=== PATIENT | female | born 1985 | race Two or more races ===

== ENCOUNTER → 2023-08-04 11:21 | Outpatient (BNVA) | payer MEDICAID, SELFPAY | PROVIDERS: Visit Provider Physician Assistant ==

== ENCOUNTER 2023-09-08 10:53 | Outpatient (AMB) | payer MEDICAID, SELFPAY ==
--- NOTE | 2023-09-08 10:57 | MHC.OFFVISWM ---
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 Her goal is to lose 80 lbs via LSG. She reports first being concerned about her weight 2011 - after had work accident and lost 3 figures. She lives with her and 2 children. She works 3d/week as houselcleaner. She wakes at: 6am, bed at 11 pm Breakfast: spinach and other green vegetables juice, pineapple. Coffee with 2% milk and sugar 7:30 am - 2 eggs with 2 pieces siddiqi with rodas. OJ or lemonade Lunch: 1 pm - chicken or beef or fish with rice and vegetables. Lemonade Dinner: 7pm - chicken with salad rice/beans. Lemonade or other juice, water After dinner: may have fruit after dinner Other snacks: states none Liquids:Soda at times, but has sweetened drinks all day Alcohol intake: 3 tiems per year, tobacco: none, marijuana: none Exercise: 30- 40 minutes - treadmill at home, 250 calories 3-4 d/ week. stretching exercises at home Last mammogram: never Last pap smear: anuually control method: BTL EILEEN:0 ESS:3 GERD2: QOL:45 PFSH Surgical History (Updated 09/08/23 @ 11:25 by Ariana Aden PA-C) Hx of skin graft Hx of hand surgery Family History Mother No problems noted. Father Hypertension Social History (Updated 08/04/23 @ 11:41 by Patricia Colon, ROOF CEMENT AND PAINT MAKER) Alcohol intake: never Patient Tobacco Use Status: Never used Tobacco Physical Exam Const General: cooperative, no acute distress and well developed Nutritional Appearance: obese Orientation/consciousness: patient oriented x3 HEENT Head: Yes normal to inspection Neck Neck: Yes normal visual inspection Thyroid: Thyroid normal Resp Effort & Inspection: normal respiratory effort Auscultation: clear to auscultation bilaterally Cardio Rate: regular rate Rhythm: regular rhythm Heart sounds: S1 normal heart sound present, S2 normal heart sound present and no murmurs GI Inspection: No distended, Yes obesity and Yes scar (vertical skin inciison form graft and low transverse c/s scar) Palpation (GI): Soft to palpation, nontender and no guarding Skin General skin exam: no rashes or lesions noted and other (warm and dry) Wounds: no wounds Hair: normal Neuro General: patient oriented x3 Extrem General: Yes no pedal edema and Yes no calf tenderness Psych Attitude: cooperative Thought process: Normal thought process present Thought content: Normal thought content present Insight: Good insight present (Psych) Judgement: Good judgement present (Psych) Assessment & Plan Assessment & Plan (1) Morbid obesity: Code(s): E66.01 - Morbid (severe) obesity due to excess calories Plan: This is a 38 yo woman with super morbid obesity who will start SWL program to prepare for bariatric surgery. Blood work, h pylori , CXR, ECG, Abd ULS and UGI have been ordered. She is being scheduled for RD and BH initial consultations. She will start SWL classes and watch at 3 classes before her next appt with Jacqueline. 1. Adequate sleep of 7-8 hours per night discussed 2. Healthy meal plan - stop all sweetened drinks All meals/MR's need to take 20 minutes to complete coffee with milk only 8 am - powdered shake 12 pm - yogurt or bar 4 pm- shake 7 pm- dinner of 12 foks lean protein, 12 forks vegetable, 1 serving fruit Exercise - Cardio 4 d week = treadmill at speed 2.8, incline 1- 6- to burn 350 calories The importance of avoiding and breast feeding for at least 18 months after bariatric surgery was discussed in the information session and was reinforced today. Has BTL Pt will purchase body composition analyzer (recommended list given to patient) and weight herself weekly. Next appt with me in 3 weeks. Text me with any questions and weekly weights. Patient is morbidly obese and is not considered stable at this time.?I spent a total of 60 minutes reviewing/updating records, examining the patient and counseling the patient on weight management as detailed above. (2) Pre-op evaluation: Code(s): Z01.818 - Encounter for other preprocedural examination (3) section wound complication: Code(s): O90.9 - Complication of the puerperium, unspecified (4) History of bilateral tubal ligation: Code(s): Z98.51 - Tubal ligation status (5) GERD (gastroesophageal reflux disease): Code(s): K21.9 - Gastro-esophageal reflux disease without esophagitis (6) HTN (hypertension), benign: Code(s): I10 - Essential (primary) hypertension Coding Level of Care Code New Pt Level 5 (30161) Diagnoses Morbid obesity E66.01 Pre-op evaluation Z01.818 section wound complication O90.9 History of bilateral tubal ligation Z98.51 GERD (gastroesophageal reflux disease) K21.9 HTN (hypertension), benign I10
[2023-09-08 11:13] VITALS: BP 166/88; PULSE 68; TEMP 36.1; O2SAT 97; BMI 59.1
== END 2023-09-08 12:01 | disposition home or self-care (01) ==
PROVIDERS: Visit Provider Physician Assistant
DX: E66.01 Morbid (severe) obesity due to excess calories (principal); Z68.43 Body mass index [BMI] 50.0-59.9, adult; K21.9 Gastro-esophageal reflux disease without esophagitis; I10 Essential (primary) hypertension
CPT/HCPCS: 99205

== ENCOUNTER 2023-09-08 10:53 | Outpatient (REF) | payer MEDICAID, SELFPAY ==
[2023-09-10 17:15] LABS: H Pylori Breath Test Positive (Negative)
== END 2023-09-08 10:54 | disposition home or self-care (01) ==
LOC: HO.LNP 10:53
PROVIDERS: Visit Provider Physician Assistant
DX: Z01.818 Encounter for other preprocedural examination (principal); E66.01 Morbid (severe) obesity due to excess calories; K21.9 Gastro-esophageal reflux disease without esophagitis; I10 Essential (primary) hypertension
CPT/HCPCS: 83013; 99202; 99211

== ENCOUNTER 2023-09-15 08:43 | Outpatient (REF) | payer MEDICAID, SELFPAY ==
--- NOTE | ~2023-09-15 | XR_ITS ---
EXAMINATION: XR CHEST CLINICAL INFORMATION: Morbid obesity due to excess calories COMPARISON: None available. TECHNIQUE: 2 views of the chest were obtained. FINDINGS: There is no gross pneumothorax. Lung volumes are low. Heart size is normal. No pleural effusion. No focal consolidation to suggest pneumonia. Mild degenerative changes in the thoracic spine. XR/XR chest 2V IMPRESSION: No evidence of pneumonia.
--- NOTE | 2023-09-15 08:52 | ECG_ITS ---
Test Reason : morbid obesity Blood Pressure : / mmHG Vent. Rate : 079 BPM Atrial Rate : 079 BPM P-R Int : 138 ms QRS Dur : 078 ms QT Int : 378 ms P-R-T Axes : 014 005 038 degrees QTc Int : 433 ms Normal sinus rhythm Normal ECG No previous ECGs available Referred By: Ariana Aden Electronically Signed By:BROOKE FRANCO MD
[2023-09-15 09:15] LABS: MANUAL DIFF FLAG NO
[2023-09-15 09:52] LABS: Basophils Percent Auto 0.5 % (0-2); Eosinophils Absolute Auto 0.3 X10*3/uL (0.0-0.4); Eosinophils Percent Auto 2.9 % (0-4); Hematocrit 40.2 % (37.0-47.0); Imm Gran Abs Auto 0.02 X10*3/uL (0.00-0.03); Imm Gran Pct Auto 0.2 % (0.0-0.4); Lymphocytes Absolute Auto 2.9 X10*3/uL (1.2-4.9); Lymphocytes Percent Auto 32.7 % (20-40); Mean Corpuscular HGB Conc 32.3 g/dl (31.0-35.0); Mean Corpuscular Hemoglobin 26.4 pg (27.0-33.0); Mean Corpuscular Volume 81.5 fL (80.0-98.0); Mean Platelet Volume 11.9 fL (9.4-12.3); Monocytes Absolute Auto 0.7 X10*3/uL (0.1-1.2); Neutrophils Absolute Auto 4.9 x10*3/uL (2.0-8.3); Neutrophils Percent Auto 55.7 % (45-73); Platelet Count 304 X10*3/uL (160-400); Red Blood Count 4.93 X10*6/uL (4.20-5.50); Red Cell Distribution Width 14.8 % (11.0-16.0); White Blood Count 8.7 X10*3/uL (4.8-10.8)
[2023-09-15 10:03] LABS: Estimated Average Glucose 100 mg/dL; Hemoglobin A1c % 5.1 % (<6.0)
[2023-09-15 10:43] LABS: Alanine Aminotransferase 43 U/L (0-31); Alkaline Phosphatase 61 U/L (39-117); Anion Gap 13 (12-20); Aspartate Amino Transferase 38 U/L (5-31); Bilirubin Total 0.4 mg/dL (0.0-1.0); Blood Urea Nitrogen 10 mg/dL (9-16); C Reactive Protein 0.34 mg/dL (< or = 0.50); Calcium 9.5 mg/dL (8.4-10.2); Carbon Dioxide 25 mmol/L (22-29); Chloride 107 mmol/L (96-108); Cholesterol 149 mg/dL (<200); Estimated Glomerular Filt Rate > 60; Glucose Random 92 mg/dL (60-115); HDL Cholesterol 36 mg/dL (>40); Iron 40 mcg/dL (30-160); LDL Cholesterol Calculated 89 mg/dL (<100); Percent Iron Saturation 10 % (15-50); Potassium 3.7 mmol/L (3.3-5.1); Sodium 141 mmol/L (135-145); Total Iron Binding Capacity 418 mcg/dL (228-428); Total Protein 7.9 g/dL (6.5-8.0); Triglycerides 123 mg/dL (<150); Unsaturated Iron Binding 378 ug/dL
[2023-09-15 11:01] LABS: Ferritin 8 ng/mL (10-122); Insulin 22 uU/mL (2-29); Vitamin D 25-OH Total 28.1 ng/mL (>30)
[2023-09-15 11:05] LABS: Folate 9.3 ng/mL (> or = 4.0); Vitamin B12 728 pg/mL (200-900)
[2023-09-16 15:23] LABS: Calcium (PTHI) 9.5 mg/dL (8.6-10.2); PTHI 75 pg/mL (16-77)
[2023-09-18 00:52] LABS: Zinc 98 mcg/dL (60-130)
[2023-09-18 04:19] LABS: Vitamin A 34 mcg/dL (38-98)
[2023-09-20 16:54] LABS: Vitamin B1 11 nmol/L (8-30)
== END 2023-09-15 08:44 | disposition home or self-care (01) ==
LOC: HO.XRAY 08:43
PROVIDERS: Visit Provider Physician Assistant
DX: Z01.818 Encounter for other preprocedural examination (principal); E66.01 Morbid (severe) obesity due to excess calories; K21.9 Gastro-esophageal reflux disease without esophagitis; I10 Essential (primary) hypertension
CPT/HCPCS: 36415; 71046; 80053; 80061; 82306; 82607; 82728; 82746; 83036; 83525; 83540; 83970; 84425; 84443; 84590; 84630; 85025; 86140; 93005

== ENCOUNTER 2023-10-08 12:30 | Outpatient (AMB) | payer OTHER, SELFPAY ==
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
== END 2023-10-08 12:58 | disposition home or self-care (01) ==
LOC: HO.HBST 12:41
PROVIDERS: Visit Provider Counselor Mental Health
DX: F43.20 Adjustment disorder, unspecified (principal)
CPT/HCPCS: 90791

== ENCOUNTER → 2023-10-08 12:30 | Outpatient (BNVA) | payer OTHER, MEDICAID, SELFPAY | PROVIDERS: Visit Provider Counselor Mental Health ==

== ENCOUNTER 2023-10-15 10:00 | Outpatient (AMB) | payer MEDICAID, SELFPAY ==
--- NOTE | 2023-10-15 10:08 | MHC.OFFVISWM ---
Intake VS Expanded 10/15/23 10:12 Height 5 ft 2 in Weight 313 lb BMI 57.2 Intake Visit Reasons: VIDEO F/U SWL Allergies No Known Allergies Allergy (Verified 08/04/23 11:41) HPI HPI Comments History of Present Illness Details This is the patients second appt for SWL. Starting weight was 323.1 lbs on 09/01/23. TBWL is 10 lbs. Meal plan: 8am - Unjury shake 11am- fruit only 12pm - yogurt 2pm- shake 4pm - ? portion size, salmon or chicken breast, with salad/vegetables 7pm - almonds Exercise plan: treadmill at home - 5d/wk. speed 2.6, incline 4, 300- 350 calories burned. Pre op work up completed as follows: SWL classes - - none BH appts - Diane, cleared RD appts - not yet H pylori - POSITIVE , treated on 10/06 Labs - elevated LFT's CXR and ECG - both NAD ULS and UGI - 10/16 and 12/03 Contraception- BTL PFSH Surgical History (Updated 09/08/23 @ 11:25 by Ariana Aden PA-C) Hx of skin graft Hx of hand surgery Family History Mother No problems noted. Father Hypertension Social History Alcohol intake: never Patient Tobacco Use Status: Never used Tobacco Physical Exam Vital Signs: BMI result Body Mass Index 57.2 Assessment & Plan Assessment & Plan (1) Morbid obesity: Code(s): E66.01 - Morbid (severe) obesity due to excess calories Plan: 10 lbs lost so far, now SWL classes yet. 8am - shake 11 am - yogurt 2pm - shake 5pm- 12 forks each protein and veg and 1 serving fruit 7-8 pm- bar Exercise - treadmill - speed 3.0, incline 2 - 7, 400 calories. Text me weekly weights. All upcoming appts discussed, will schedule with Jacqueline now and all SWL classes before appt. Next appt 3 weeks. Patient is still morbidly obese and is not considered stable at this time. I spent 30 minutes in total speaking with the patient via video conference counseling , reviewing records and charting in patients chart. . Telehealth Telehealth Location of provider rendering services: practice address Location of patient: address on file Patient Identification confirmed using: Name, : Yes Telehealth method: video Patient verbally consented to treatment: Yes Patient verbally consented to billing insurance company: Yes Patient informed of any privacy concerns related to visit: Yes Coding Level of Care Code Tele Est Pt Level 4 (86565) Diagnoses Morbid obesity E66.01
[2023-10-15 10:12] VITALS: BMI 57.2
== END 2023-10-15 10:31 | disposition home or self-care (01) ==
LOC: HO.HBS 10:15
PROVIDERS: Visit Provider Physician Assistant
DX: E66.01 Morbid (severe) obesity due to excess calories (principal); Z68.43 Body mass index [BMI] 50.0-59.9, adult
CPT/HCPCS: 99214

== ENCOUNTER → 2023-10-15 10:00 | Outpatient (BNVA) | payer OTHER, MEDICAID, SELFPAY | PROVIDERS: Visit Provider Physician Assistant ==

== ENCOUNTER 2023-10-16 09:57 | Outpatient (REF) | payer MEDICAID, OTHER, SELFPAY ==
--- NOTE | ~2023-10-16 | US_ITS ---
EXAMINATION: US COMPLETE ABDOMEN WITH LIVER ELASTOGRAPHY CLINICAL INFORMATION: Morbid obesity. COMPARISON: None available. TECHNIQUE: Real-time imaging of the abdominal viscera. Noninvasive ultrasound liver fibrosis assessment is performed using Dylan ElastPQ point quantification shear wave elastography (2D-SWE) with a C5-2 MHz transducer. Multiple elastography samples are obtained. FINDINGS: PANCREAS: Largely obscured by body habitus. ABDOMINAL AORTA: The proximal, middle, and distal aortic segments are normal in caliber. INFERIOR VENA CAVA: Visualized portions are normal. LIVER: Normal. The liver demonstrates normal size, contour and echogenicity. No focal lesion or intrahepatic biliary duct dilatation. The right lobe measures 14.1 cm in length. The left lobe measures 9.8 cm in length. Portal flow is towards the liver (hepatopetal). Shear wave liver elastography median stiffness is 1.49 m/s (reference: normal median stiffness is 1.3 m/s or less). IQR/median stiffness to assess sampling precision is 0.1. (reference: good quality data set is IQR/median stiffness of 0.15 or less). GALLBLADDER: A 4 mm nonmobile gallbladder polyp is incidentally noted. The gallbladder is physiologically distended without evidence of stones, sludge, polyps, wall thickening or pericholecystic fluid. COMMON BILE DUCT: Normal in caliber measuring 0.3 cm in diameter. RIGHT KIDNEY: Normal. No hydronephrosis. No renal calculi or focal parenchymal lesions. The kidney measures 9.4 cm in maximum dimension. LEFT KIDNEY: At the interpolar aspect, a 2.0 cm benign, simple cyst is seen. This requires no imaging follow-up. No hydronephrosis. No renal calculi or focal parenchymal lesions. The kidney measures 11.8 cm in maximum dimension. SPLEEN: Normal. The spleen measures 10.4 cm in maximum dimension. FREE FLUID: None. US/US abdomen comp w elastography IMPRESSION: 1. There is generalized increase in hepatic echotexture, consistent with fatty infiltration or hepatocellular disease. Please correlate clinically. No focal hepatic mass or intrahepatic biliary dilatation is seen. 2. Liver elastography: In the absence of other known clinical signs, measurements rule out compensated advanced chronic liver disease. If there are known clinical signs, further testing may be needed for confirmation. 3. A 4 mm nonmobile gallbladder polyp is incidentally seen, for which no imaging follow-up is recommended. 4. Limited ultrasound evaluation, in particular of the pancreas. REFERENCE: Society of Radiologists in Ultrasound Liver Stiffness Thresholds (2020): LIVER STIFFNESS THRESHOLDS: *Liver Stiffness equal or less than 1.3 m/s: High probability of being normal. *Liver Stiffness less than 1.7 m/s: In the absence of other known clinical signs, rules out compensated advanced chronic liver disease. *Liver Stiffness 1.7-2.1 m/s: Suggestive of compensated advanced chronic liver disease but need further test for confirmation. *Liver Stiffness over 2.1 m/s: Rules in compensated advanced chronic liver disease. *Liver Stiffness over 2.4 m/s: Suggestive of clinically significant portal hypertension. QUALITY OF DATA SET: *IQR/Median value equal or less than 0.15 implies a quality data set. *IQR/Median value over 0.15 implies a poor quality data set. SIGNIFICANT CHANGE FROM PRIOR EXAM: Significant change if liver stiffness measurement is 10% or greater from prior exam. OTHER CONSIDERATIONS: The stage of liver fibrosis may be overestimated in the setting of acute hepatitis, liver inflammation, elevated liver function tests, hepatic vascular congestion, obstructive cholestasis, non-fasting state, and infiltrative diseases such as amyloidosis and lymphoma. In some patients with NAFLD, the liver stiffness thresholds for compensated advanced chronic liver disease may be lower. In causes other than viral hepatitis and NAFLD, liver stiffness thresholds are not well established.
== END 2023-10-16 09:58 | disposition home or self-care (01) ==
LOC: HO.US 09:57
PROVIDERS: Visit Provider Physician Assistant
DX: Z01.818 Encounter for other preprocedural examination (principal); E66.01 Morbid (severe) obesity due to excess calories; K21.9 Gastro-esophageal reflux disease without esophagitis; I10 Essential (primary) hypertension
CPT/HCPCS: 76705; 76981

== ENCOUNTER 2023-11-12 10:14 | Outpatient (AMB) | payer MEDICAID, SELFPAY ==
--- NOTE | 2023-11-12 10:30 | MHC.OFFVISWM ---
Intake VS Expanded 11/12/23 10:42 BP 129/67 Blood Pressure Location Rt brachial Blood Pressure Position Sitting Pulse 88 Pulse Source Pulse Oximeter Temp 96.8 F Temperature Source Tympanic Pulse Oximetry 100 Oxygen Delivery Method Room Air Height 5 ft 2 in Weight 306 lb 9.6 oz BMI 56.1 Body Fat % 46.1 Body Fat Mass 141.4 Fat Free Mass 165.2 Visceral Fat Rating 18.0 Body Water % 38.6 Body Water Mass 118.2 Muscle Mass/Score 156.8 Basal Metabolic Rate/Score 2,365 Intake Visit Reasons: (OV) F/U SWL + H Pylori Allergies No Known Allergies Allergy (Verified 08/04/23 11:41) HPI HPI Comments History of Present Illness Details SWL follow up, TBWL is 16.3 lbs or 5%. Meal plan: 8am - Unjury shake UAM 11 am - yogurt, sometimes adds blueberries 2pm- same shake 5pm - salad or vegetables with chicken breast - use handfuls - knows about 12 forkfuls. 6-7 pm - Simply protein bar sometimes Exercise - will start tomorrow, has treadmill at home now. Pre op work up completed as follows: SWL classes - - none BH appts - Diane, cleared RD appts - initial 11/18. H pylori - POSITIVE , treated on 10/06, retest today Labs - elevated LFT's CXR and ECG - both NAD ULS - fatty liver, R 14.1, L 9.8 UGI - 12/03 Contraception- BTL PFSH Surgical History (Updated 09/08/23 @ 11:25 by Ariana Aden PA-C) Hx of skin graft Hx of hand surgery Family History Mother No problems noted. Father Hypertension Social History Alcohol intake: never Patient Tobacco Use Status: Never used Tobacco Physical Exam Vital Signs: Last Vital Signs Temp 96.8 F 11/12/23 10:42 Pulse 88 11/12/23 10:42 BP 129/67 11/12/23 10:42 Pulse Ox 100 11/12/23 10:42 Oxygen Delivery Method Room Air 01/03/24 10:42 BMI result Body Mass Index 56.1 Assessment & Plan Assessment & Plan (1) Morbid obesity: Code(s): E66.01 - Morbid (severe) obesity due to excess calories Plan: Patient has a very good meal plan and will start exercise now. She has the link for SWL classes and Hakeem is helping her today with access. Meal plan 8am - shake 11am - bar 2pm - shake 5pm - 12 forks each 8pm - bar Exercise - treadmill - speed 2.8m incline 0-5, for 350 calories 5 d/ week Needs to watch classes now. All appts reviewed with patient. Next appt with me in 3 weeks TV. Patient is still morbidly obese and is not considered stable at this time. I spent 30 minutes in total speaking with the patient via video conference counseling , reviewing records and charting in patients chart. . (2) HTN (hypertension), benign: Code(s): I10 - Essential (primary) hypertension (3) Fatty liver: Code(s): K76.0 - Fatty (change of) liver, not elsewhere classified Plan see above Coding Level of Care Code Est Pt Level 4 (13216) Diagnoses Morbid obesity E66.01 HTN (hypertension), benign I10 Fatty liver K76.0
[2023-11-12 10:42] VITALS: BP 129/67; PULSE 88; TEMP 36; O2SAT 100; BMI 56.1
== END 2023-11-12 11:21 | disposition home or self-care (01) ==
PROVIDERS: Visit Provider Physician Assistant
DX: E66.01 Morbid (severe) obesity due to excess calories (principal); I10 Essential (primary) hypertension; K76.0 Fatty (change of) liver, not elsewhere classified
CPT/HCPCS: 99214

== ENCOUNTER → 2023-11-12 10:14 | Outpatient (BNVA) | payer MEDICAID, SELFPAY | PROVIDERS: Visit Provider Physician Assistant | DX: E66.01 Morbid (severe) obesity due to excess calories (principal); I10 Essential (primary) hypertension; K76.0 Fatty (change of) liver, not elsewhere classified; Z68.43 Body mass index [BMI] 50.0-59.9, adult | CPT/HCPCS: 99211; 99212 ==

== ENCOUNTER 2023-11-12 14:09 | Outpatient (REF) | payer MEDICAID, SELFPAY ==
[2023-11-18 15:00] LABS: H Pylori Breath Test Positive (Negative)
== END 2023-11-12 14:10 | disposition home or self-care (01) ==
LOC: HO.LNP 14:09
PROVIDERS: Visit Provider Physician Assistant
DX: Z01.818 Encounter for other preprocedural examination (principal); E66.01 Morbid (severe) obesity due to excess calories; K21.9 Gastro-esophageal reflux disease without esophagitis; I10 Essential (primary) hypertension
CPT/HCPCS: 83013

== ENCOUNTER 2023-11-18 10:10 | Outpatient (AMB) | payer MEDICAID, SELFPAY ==
--- NOTE | 2023-11-18 10:32 | MHC.AMNUTRGE ---
Intake Intake Visit Reasons: (OV) F/U SWL Technical Sales Manager Required: Yes Technical Sales Manager Name: chrissy Contreras [id number] Information Interpreted: non-clinical & clinical Allergies No Known Allergies Allergy (Verified 08/04/23 11:41) HPI Nutrition Presentation Reason for consult elevated BMI Diet Assmnt Details Pt seeing Ariana, following her program plan without concerns or issues. 2 shakes, 2 bars and 1 meal - protein such as salmon, chicken, beef and vegetables. she is very happy with the way she is eating SW online classes: completed and scored well, reviewed. handouts provided Dietary counseling reduction Who buys your food self Who prepares/cooks your food self Diagnosis Nutrition problem #1 overweight/obesity As related to (etiology) #1 excess energy intake and physical inactivity As evidenced by (sign/symptom) #1 high BMI Monitoring/Goals Nutrition problem monitoring total energy intake, level of knowledge/skill, total PRO intake and weight Outcome progress progressing Learning/Education Readiness to learn good Stages of change action Educational materials provided Yes Most Recent Diabetes Results: Cholesterol 149 mg/dL (<200) 09/15/23 HDL Cholesterol 36 mg/dL (>40) L 09/15/23 Triglycerides 123 mg/dL (<150) 09/15/23 Creatinine 0.89 mg/dL (0.5-1.4) 09/15/23 Blood Urea Nitrogen 10 mg/dL (9-16) 09/15/23 Sodium 141 mmol/L (135-145) 09/15/23 Potassium 3.7 mmol/L (3.3-5.1) 09/15/23 Chloride 107 mmol/L (96-108) 09/15/23 Carbon Dioxide 25 mmol/L (22-29) 09/15/23 Calcium 9.5 mg/dL (8.4-10.2) 09/15/23 AST 38 U/L (5-31) H 09/15/23 ALT 43 U/L (0-31) H 09/15/23 Total Protein 7.9 g/dL (6.5-8.0) 09/15/23 Albumin 4.0 g/dL (3.5-5.0) 09/15/23 PFSH Surgical History (Updated 09/08/23 @ 11:25 by Ariana Aden PA-C) Hx of skin graft Hx of hand surgery Family History Mother No problems noted. Father Hypertension Social History Alcohol intake: never Patient Tobacco Use Status: Never used Tobacco Assessment & Plan Assessment & Plan (1) Morbid (severe) obesity due to excess calories: Code(s): E66.01 - Morbid (severe) obesity due to excess calories Plan Patient is cleared from a nutrition standpoint for bariatric surgery. Educational requirements have been completed. Reviewed vitamin supplementation and commitment to protein shake for several months post surgery. Encouraged communication with office as needed Coding Level of Care Code Nutr Indiv Intake (22928) Diagnoses Morbid (severe) obesity due to excess calories E66.01 Time Spent (min) 25
== END 2023-11-18 13:15 | disposition home or self-care (01) ==
PROVIDERS: Visit Provider Dietitian, Registered
DX: E66.01 Morbid (severe) obesity due to excess calories (principal)

== ENCOUNTER → 2023-11-18 10:10 | Outpatient (BNVA) | payer MEDICAID, SELFPAY | PROVIDERS: Visit Provider Dietitian, Registered | DX: E66.01 Morbid (severe) obesity due to excess calories (principal) | CPT/HCPCS: 97802 ==

== ENCOUNTER 2023-12-03 15:00 | Outpatient (AMB) | payer MEDICAID, SELFPAY ==
--- NOTE | 2023-12-03 10:21 | MHC.OFFVISWM ---
Intake VS Expanded 12/03/23 15:09 Height 5 ft 2 in Weight 299 lb 6 oz BMI 54.8 Intake Visit Reasons: VIDEO F/U SWL Allergies No Known Allergies Allergy (Verified 08/04/23 11:41) HPI HPI Comments History of Present Illness Details [facility] follow up, [employer]PORATE EVENTS DIRECT[employer] weight of 323.1 lbs, TBWL is 23.5 lbs, 7.3%. Meal plan: 8am - Unjury with water or UAM 12 pm- Atkins bar 3pm - another shake 5pm - 12 forks salmon or steak with 12 forks vegetable 7pm - bar or fruit Exercise - 45 minutes treadmill - speed 2.9, incline - 2.8 -3.0. calories burned - 350 -425 minute. 5d/ week. Pre op work up completed as follows: [facility] classes - 06/17 BH appts - Diane, cleared RD appts - initial 11/18, cleared H pylori - POSITIVE , treated on 10/06, 11/12/23 - POSITIVE , quadruple therapy initiated on 11/19/23, retest Dec 22. Labs - elevated LFT's CXR and ECG - both NAD ULS - fatty liver, R 14.1, L 9.8 UGI - 12/03, Missed appt today due to weather, now rescheduled to Dec 18. Contraception- BTL PFSH Surgical History (Updated 09/08/23 @ 11:25 by Ariana Aden PA-C) Hx of skin graft Hx of hand surgery Family History Mother No problems noted. Father Hypertension Social History Alcohol intake: never Patient Tobacco Use Status: Never used Tobacco Assessment & Plan Assessment & Plan (1) Morbid obesity: Code(s): E66.01 - Morbid (severe) obesity due to excess calories Plan: Great progress with 7.5% TBWL. Change to meal plan - have fruit with dinner. Change to exercise - treadmill 5d/week - speed 3.0, incline 2-6 (3 minutes ) for 400 alena daily (10 alena/minute) H pylori retest on 12/22, UGI on 12/18, appt with de week of Dec 23, then to Dr Salcedo for surgical consultation if has lost 10%. Patient is still morbidly obese and is not considered stable at this time. I spent 25 minutes in total speaking with the patient via video conference counseling , reviewing records and charting in patients chart. . (2) H. pylori infection: Code(s): A04.8 - Other specified bacterial intestinal infections Plan: Retest on 12/22 (3) HTN (hypertension), benign: Code(s): I10 - Essential (primary) hypertension (4) Fatty liver: Code(s): K76.0 - Fatty (change of) liver, not elsewhere classified Plan see above Telehealth Telehealth Location of provider rendering services: practice address Location of patient: address on file Patient Identification confirmed using: Name, : Yes Telehealth method: video Patient verbally consented to treatment: Yes Patient verbally consented to billing insurance company: Yes Patient informed of any privacy concerns related to visit: Yes Coding Level of Care Code Tele Est Pt Level 4 (57509) Diagnoses Morbid obesity E66.01 H. pylori infection A04.8 HTN (hypertension), benign I10 Fatty liver K76.0
[2023-12-03 15:09] VITALS: BMI 54.8
== END 2023-12-03 15:26 | disposition home or self-care (01) ==
LOC: HO.HBS 15:25
PROVIDERS: Visit Provider Physician Assistant
DX: E66.01 Morbid (severe) obesity due to excess calories (principal); Z68.43 Body mass index [BMI] 50.0-59.9, adult; A04.8 Other specified bacterial intestinal infections; K76.0 Fatty (change of) liver, not elsewhere classified
CPT/HCPCS: 99214

== ENCOUNTER 2023-12-22 08:19 | Outpatient (REF) | payer MEDICAID, SELFPAY ==
--- NOTE | ~2023-12-22 | FL_ITS ---
EXAMINATION: XR FLUOROSCOPY UPPER GI WITH AIR CLINICAL INFORMATION: Preop evaluation prior to bariatric surgery COMPARISON: None TECHNIQUE: Fluoroscopic air contrast upper GI examination was performed utilizing standard techniques with thin and thick barium and effervescent granules. Numerous spot images were obtained. FINDINGS: Dual and single contrast images of the esophagus demonstrate normal contour and mucosal pattern. The distal one half of the esophagus is moderately patulous. GE junction is mildly patulous. No evidence of stricture, mass, or ulcerations identified. Esophageal peristalsis was normal. A small type I hiatal hernia is present. Gastroesophageal reflux is seen up to the midesophagus. Dual contrast and single contrast images of the stomach demonstrated normal contour and mucosal pattern without evidence of mass, ulceration, or other abnormality. Contrast freely passed into the gastric antrum and duodenal bulb without delay. Single and air-contrast images of the duodenal bulb demonstrate no abnormality. The duodenal sweep has a normal appearance, course, and mucosal fold appearance. No malrotation. The imaged proximal jejunum has a normal fold pattern and caliber. FLUOROSCOPY TIME: 3 minutes Number of Spot Images: 8 Number of Cine: 9 DOSE AREA PRODUCT: [id number] uGy-m2 (microgray-meter squared) FL/FL upper GI w air IMPRESSION: 1. Small type I hiatal hernia. GE junction is mildly patulous. 2. Moderate gastroesophageal reflux 3. Distal esophagus is moderately patulous. This procedure was performed by Jay Sunshine PA-C, and supervised by Dr. Browning
[2023-12-26 10:35] LABS: H Pylori Breath Test Negative (Negative)
== END 2023-12-22 08:20 | disposition home or self-care (01) ==
LOC: HO.XRAY 08:19
PROVIDERS: Visit Provider Physician Assistant
DX: Z01.818 Encounter for other preprocedural examination (principal); E66.01 Morbid (severe) obesity due to excess calories; K21.9 Gastro-esophageal reflux disease without esophagitis; I10 Essential (primary) hypertension
CPT/HCPCS: 74246; 83013; 99211

== ENCOUNTER → 2023-12-22 08:20 | Outpatient (BNV) | payer MEDICAID, SELFPAY | PROVIDERS: Visit Provider Radiology Diagnostic Radiology | DX: Z01.818 Encounter for other preprocedural examination (principal); E66.01 Morbid (severe) obesity due to excess calories | CPT/HCPCS: 74246 ==

== ENCOUNTER 2024-01-05 08:29 | Outpatient (AMB) | payer MEDICAID, SELFPAY ==
--- NOTE | 2024-01-05 08:31 | MHC.OFFVISWM ---
Intake VS Expanded 01/05/24 08:36 BP 167/96 H Blood Pressure Location Lt radial Blood Pressure Position Sitting Pulse 75 Pulse Source Pulse Oximeter Temp 97.6 F Temperature Source Tympanic Pulse Oximetry 99 Oxygen Delivery Method Room Air Height 5 ft 2 in Weight 295 lb 6.4 oz BMI 54.0 Body Fat % 47.1 Body Fat Mass 138.8 Fat Free Mass 156.4 Visceral Fat Rating 17.0 Body Water % 37.9 Body Water Mass 111.8 Muscle Mass/Score 148.4 Basal Metabolic Rate/Score 2,239 Intake Visit Reasons: (OV) F/U SWL Allergies No Known Allergies Allergy (Verified 01/05/24 08:38) HPI HPI Comments History of Present Illness Details [facility] follow up, [employer] weight of 323.1 lbs, TBWL is 27.7 lbs, 8.6%. Meal plan: 8am - Unjury with UAM 11AM- fruit 12 pm- same shake 3pm - bar 6 pm - 12 forks salmon or steak with 12 forks vegetable 7pm - 12 almonds with salt Exercise - wasn't using it - restarted today. treadmill 5d/week - speed 2.9, incline 3-5 (10 minutes ) for 360 alena daily (10 alena/minute) Pre op work up completed as follows: SWL classes - 06/17 BH appts - Diane, cleared RD appts - initial 11/18, cleared H pylori - POSITIVE , treated on 10/06, 11/12/23 - POSITIVE , quadruple therapy initiated on 11/19/23, retest Dec 22- NEGATIVE Labs - elevated LFT's CXR and ECG - both NAD ULS - fatty liver, R 14.1, L 9.8 UGI - 12/03, Missed appt today, done on Dec 22 - no reading yet. Contraception- BTL PFSH Surgical History (Updated 01/05/24 @ 09:32 by Ariana Aden PA-C) Hx of skin graft Hx of hand surgery Family History Mother No problems noted. Father Hypertension Social History Alcohol intake: never Patient Tobacco Use Status: Never used Tobacco Physical Exam Vital Signs: Last Vital Signs Temp 97.6 F 01/05/24 08:36 Pulse 75 01/05/24 08:36 BP 167/96 H 01/05/24 08:36 Pulse Ox 99 01/05/24 08:36 Oxygen Delivery Method Room Air 01/05/24 08:36 BMI result Body Mass Index 54.0 Assessment & Plan Assessment & Plan (1) Morbid obesity: Code(s): E66.01 - Morbid (severe) obesity due to excess calories Plan: SWL follow up, has completed all pre operative work up - need final reading on UGI. TBWL is 8.6%. Meal plan - stop fruit by itself and salted almonds at night. BP elevated this am 8am - Unjury with UAM 12 pm- same shake 3pm - bar 6 pm - 12 forks salmon or steak with 12 forks vegetable Exercise - treadmill 5d/week - speed 2.9, incline 3-5 (10 minutes ) for 400 alena daily (10 alena/minute) Send me weekly weight texts, surggical consult with Dr Oakley made for week of January 29 as long as weight loss has been achieved. (2) Hx of hand surgery: Comment: has only 1 finger on right hand Code(s): Z98.890 - Other specified postprocedural states Plan: no change in treatment Coding Level of Care Code Est Pt Level 4 (49245) Diagnoses Morbid obesity E66.01 Hx of hand surgery Z98.890
[2024-01-05 08:36] VITALS: BP 167/96; PULSE 75; TEMP 36.4; O2SAT 99; BMI 54.0
== END 2024-01-05 09:33 | disposition home or self-care (01) ==
PROVIDERS: Visit Provider Physician Assistant
DX: E66.01 Morbid (severe) obesity due to excess calories (principal); Z98.890 Other specified postprocedural states
CPT/HCPCS: 99214

== ENCOUNTER → 2024-01-05 08:29 | Outpatient (BNVA) | payer MEDICAID, SELFPAY | PROVIDERS: Visit Provider Physician Assistant | DX: E66.01 Morbid (severe) obesity due to excess calories (principal); Z98.890 Other specified postprocedural states; Z68.43 Body mass index [BMI] 50.0-59.9, adult | CPT/HCPCS: 99212 ==

== ENCOUNTER 2024-01-30 07:56 | Outpatient (AMB) | payer MEDICAID, SELFPAY ==
--- NOTE | 2024-01-30 00:05 | MHC.OFFVISWM ---
Intake VS Expanded 01/30/24 08:52 Height 5 ft 2 in Weight 291 lb 2 oz BMI 53.2 Intake Visit Reasons: TV Consult/Transfer Ariana *[employer]KE ASSEMBLER* Allergies No Known Allergies Allergy (Verified 01/05/24 08:38) HPI TV Consult/Transfer Ariana *SPORT SHOE SPIKE ASSEMBLER* HPI Details Start time: 8.41am, End time: 9.18am An additional 8 minutes were used at a different part of the day to complete this note and review patient's records ?I spent 37 minutes speaking with the patient on the phone plus an additional 8 minutes reviewing and updating records for a total of 45 minutes HPI Comments History of Present Illness Details Overall weight loss: 31.9lbs, or 9.87% TBWL Wakes up: 6am, Sleeps: 10pm Meal plan: 8am - Unjury (1 scoop with 8oz almond milk 11AM- fruit 4pm- same shake (1 scoop wit 8oz almond milk) 3pm - Simply protein bar or yogurt 6 pm - 12 forks salmon or steak with 12 forks vegetable 7pm - 12 almonds with salt Exercise: is doing treadmill x3/wk and elastic bands PFSH Surgical History (Updated 01/30/24 @ 08:59 by Nhan Martin MD) History of appendectomy History of section Hx of skin graft Hx of hand surgery Family History Mother No problems noted. Father Hypertension Social History Alcohol intake: never Patient Tobacco Use Status: Never used Tobacco Assessment & Plan Assessment & Plan (1) Morbid obesity: Code(s): E66.01 - Morbid (severe) obesity due to excess calories Plan: 1. Plan for lap sleeve gastrectomy including upper GI endoscopy. All tests has been completed and reviewed and the patient is cleared for the surgery. ?If diaphragmatic or ventral hernias are present at time of surgery, these will be repaired laparoscopically as well. Risks and complications were discussed in detail including possible conversion to an open procedure, anastomotic leak, bleeding requiring transfusion, small bowel obstruction, , DVT and pulmonary embolism, cardiac, or pulmonary complications, as intermediate designer complications such as anastomotic ulcer, insufficient weight loss and vitamin deficiencies. I emphasized the importance of close follow-up, adherence to instructions and good communication. So far she has proven to be an excellent communicator and very compliant with all our directions accomplishing a great weight loss. I believe that she is an excellent candidate and she is ready. 2. The patient participated in a structured preoperative lifestyle intervention program supervised by a physician the 5 months preceding the surgical procedure. The lifestyle intervention included a structured nutritional plan with a specific daily protein intake goal, an exercise plan with a 2000 calorie burn weekly goal, weekly behavior modification guidance and completion of eight 1-hour online nutritional classes and passing successfully the corresponding quizzes. Adherence to preoperative care plan was demonstrated by completing an extensive preoperative work-up. Program participation was demonstrated by completing 6 visits with our medical team and by sharing weekly weight measurements weekly for 5 consecutive months via an approved body composition scale. Compliance to the lifestyle intervention was demonstrated by achieving a 31.9lbs weight-loss or 9.87% total body weight loss (TBWL). No medications were used to achieve this weight loss. In our published experience an over 7% preoperative TBWL, achieved by meeting the diet and exercise goals of our program improves surgical outcomes, reduces the potential for surgical complications, and predicts a statistically significant higher weight loss up to 6 years postoperatively. 3. Change nutritional plan to an Unjury protein shake (1/2 scoop in almond milk) at 7-9, Simply protein bar at 10-12pm, another Unjury shake (1/2 scoop in almond milk) at 1pm-3pm, Simply protein bar at 4pm-6pm, dinner at 7pm (12 forks of protein and 12 forks of salad or vegetables) and another Unjury shake with HALF scoop in 8oz almond milk at 8pm-10pm 4. Change treadmill with an incline of 2.0 and speed of 2.5. Increase incline by 1 every 3 min to a max incline of 8.0, stay 3min at 8.0 and then return to 2.0 and repeat same steps until calorie goal is met. Goal is to burn 2000 calories per week on exercise, which means either 300 calories daily. 5. Send me weight measurements weekly on Fridays Telehealth Telehealth Location of provider rendering services: practice address Location of patient: address on file Patient Identification confirmed using: Name, : Yes Telehealth method: voice only Patient verbally consented to treatment: Yes Patient verbally consented to billing insurance company: Yes Patient informed of any privacy concerns related to visit: Yes Minutes spent on Phone/Video with Pt.: 45 Coding Level of Care Code Tele Est Pt Level 5 (48953) Diagnoses Morbid obesity E66.01 Time Spent (min) 45 Comment With A [place] speaking director of billing
[2024-01-30 08:52] VITALS: BMI 53.2
== END 2024-01-30 09:19 | disposition home or self-care (01) ==
LOC: HO.HBS 07:56
PROVIDERS: Visit Provider Surgery
DX: E66.01 Morbid (severe) obesity due to excess calories (principal); Z68.43 Body mass index [BMI] 50.0-59.9, adult
CPT/HCPCS: 99443

== ENCOUNTER → 2024-01-30 07:56 | Outpatient (BNVA) | payer MEDICAID, SELFPAY | PROVIDERS: Visit Provider Surgery ==

== ENCOUNTER 2024-02-25 11:04 | Outpatient (AMB) | payer MEDICAID, SELFPAY ==
[2024-02-25 15:30] VITALS: BMI 52.4
--- NOTE | 2024-02-25 15:30 | A.OFFVIS_ITS ---
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* Allergies No Known Allergies Allergy (Verified 02/25/24 15:44) Medication List - Last Reconciled 02/25/24 by Nhan Martin MD cholecalciferol (vitamin D3) 50 mcg PO DAILY cyanocobalamin (vitamin B-12) 1,000 mcg PO DAILY losartan 50 mg PO DAILY ondansetron 4 mg PO Q12H pantoprazole 40 mg PO DAILY polyethylene glycol 3350 (Miralax) 17 grams PO DAILY sucralfate 10 mL PO BID HPI TV 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* HPI Details Start time: 3.25pm, End time: 3.55pm ?I spent 25 minutes speaking with the patient on the phone plus an additional 5 minutes reviewing and updating records for a total of 30 minutes HPI Comments History of Present Illness Details Overall weight loss: 36.3lbs, or 11.23% TBWL Nutritional plan: to an Unjury protein shake (1/2 scoop in almond milk) at 7-9, Simply protein bar at 10-12pm, another Unjury shake (1/2 scoop in almond milk) at 1pm-3pm, Simply protein bar at 4pm-6pm, dinner at 7pm (12 forks of protein and 12 forks of salad or vegetables) and another Unjury shake with HALF scoop in 8oz almond milk at 8pm-10pm Exercise: treadmill with an incline of 2.0 and speed of 2.5. Increase incline by 1 every 3 min to a max incline of 8.0, stay 3min at 8.0 and then return to 2.0 and repeat same steps until calorie goal is met. Goal is to burn 2000 calories per week on exercise, which means either 300 calories daily. FORMERLY [facility], [facility] Medical History (Updated 02/25/24 @ 08:12 by Teena Das RN) GERD (gastroesophageal reflux disease) HTN (hypertension) Surgical History (Updated 02/25/24 @ 08:12 by Teena Das RN) Hx of tubal ligation History of appendectomy History of section Hx of skin graft Hx of hand surgery Family History Mother No problems noted. Father Hypertension Social History Are you a primary home care assistant to a significant other at home: No Do you presently have visiting nurse or other home services: No Alcohol intake: never Patient Tobacco Use Status: Never used Tobacco Use of substances other than those prescribed or required for medical reasons: No Have you been hit, kicked, punched, or otherwise hurt by someone within the past year? If so, by whom?: No Are you DNR?: No Advance Directives: No Advance Directives Information Provided: No Advance Directives on File: No Recently lost weight without trying: No Eating poorly because of decreased appetite: No Nutrition Risks: No Nutritional Risk Patient : No : No Poor oral hygiene: Yes (implants X2 upper and lower) Assessment & Plan Assessment & Plan (1) Morbid obesity: Code(s): E66.01 - Morbid (severe) obesity due to excess calories Plan: 1. Plan for lap sleeve gastrectomy including upper GI endoscopy. All tests has been completed and reviewed and the patient is cleared for the surgery. ?If diaphragmatic or ventral hernias are present at time of surgery, these will be repaired laparoscopically as well. Risks and complications were discussed in detail including possible conversion to an open procedure, anastomotic leak, bleeding requiring transfusion, small bowel obstruction, , DVT and pulmonary embolism, cardiac, or pulmonary complications, as snf complications such as anastomotic ulcer, insufficient weight loss and vitamin deficiencies. I emphasized the importance of close follow-up, adherence to instructions and good communication. So far she has proven to be an excellent communicator and very compliant with all our directions accomplishing a great weight loss. I believe that she is an excellent candidate and she is ready. 2. Preop prescriptions were provided and explained the purpose of each one. Need to be purchased preop. Start Pantoprazole now as you get it from the pharmacy, 1 pill per day. Sucralfate and Zofran are for after surgery as needed. 3. Bowel prep: please do 7 packets ?of Miralax mixing each one with a an 8oz glass of water, crystal light, gatorade zero, or propel ?on 02/28/23 and the same amount on 03/01/23. The Miralax you begin with one packet at a time in 8oz water or crystal light, gatorade zero, or propel ?as early in the day as you can and you do them back to back until you finish them. Continue the protein shakes during? the bowel prep. 4. Needs to purchase 1oz medicine cups . 5. Needs to purchase Children's liquid Tylenol for postop pain control. 6. She needs to stop all the vitamins on 05/15/21. Avoid aspirin, motrin, Advil, Aleve, Ibuprofen, Naproxyn. Tylenol is OK. 7. She needs to purchase the Celebrate 4:1 protein shakes from the hospital's gift shop. 8. Will do basic preop blood work-up any day between 02/26/24 and Friday02/27/24 fasting for 12 hours and is scheduled to see the Anesthesiologist prior to the day of surgery. 9. Importance of adherence to postop folllow-up and recommendations was underscored and she understands that. 10. Stop food and bars as of tomorrow 02/26/24 and continue with 5 Unjury protein shakes (ONE scoop EACH in 8oz almond milk) at 7am-9am, 10am-12pm, 1pm-3pm, 4pm- 6pm and at 7pm-9pm 11. No soups, broths or V8 12. The patient's?medical?history has been reviewed and they are considered low risk for post op DVT and therefore DVT prophylaxis is not considered necessary. Travel after surgery was reviewed. The patient has not disclosed any travel plans during the first 30 days after surgery and they have been advised that within the first 30 days after surgery any bus, plane, train or car travel over 2 hours in duration is contraindicated due to the possibility of developing blood clots from immobility. Any travel, needs to include periods of ambulation of 10 minutes in duration every 2 hours.? Patient was instructed to discuss any plans for travel during this period with their bariatric surgeon.? 13. Please take at the day of surgery the following medications: Only the Losartan according to the following parameters: Check your blood pressure daily in the morning. If your blood pressure is: Less than 120/70: do not take the Losartan 121/71 to 130/85: take HALF Losartan pill Over 131/86: take the whole Losartan pill 14. Stop any control pills and don't use them for one month after surgery 15. Absolutely no smoking or vaping, or marijuana until the surgery and for at least the first 4 weeks. Only nicotine patches are allowed. 16. Send me weight measurements on Friday02/27/24 and then on Friday on 03/02/24, the day of surgery before you go to the hospital. 17. Avoid any steroids by mouth for any reason. Let me know if someone prescribes them to you 18. These instructions supersede anything else you read in the handbook, anything you watched in videos or classes or you were told by any other provider. If there is any conflict, you follow the above instructions and nothing else. Orders: Orders Comprehensive Met. Panel Today E66.01 - Morbid (severe) obesity due to excess calories, I10 - Essential (primary) hypertension, K21.9 - Gastro-esophageal reflux disease without esophagitis, K76.0 - Fatty (change of) liver, not elsewhere classified Lipid Panel Today E66.01 - Morbid (severe) obesity due to excess calories, I10 - Essential (primary) hypertension, K21.9 - Gastro-esophageal reflux disease without esophagitis, K76.0 - Fatty (change of) liver, not elsewhere classified Hemoglobin A1c Today E66.01 - Morbid (severe) obesity due to excess calories, I10 - Essential (primary) hypertension, K21.9 - Gastro-esophageal reflux disease without esophagitis, K76.0 - Fatty (change of) liver, not elsewhere classified Insulin Today E66.01 - Morbid (severe) obesity due to excess calories, I10 - Essential (primary) hypertension, K21.9 - Gastro-esophageal reflux disease without esophagitis, K76.0 - Fatty (change of) liver, not elsewhere classified TSH reflex Free T4 Today E66.01 - Morbid (severe) obesity due to excess calories, I10 - Essential (primary) hypertension, K21.9 - Gastro-esophageal ref lux disease without esophagitis, K76.0 - Fatty (change of) liver, not elsewhere classified Type and Screen Today E66.01 - Morbid (severe) obesity due to excess calories, I10 - Essential (primary) hypertension, K21.9 - Gastro-esophageal reflux disease without esophagitis, K76.0 - Fatty (change of) liver, not elsewhere classified Partial Thromboplastin Time Today E66.01 - Morbid (severe) obesity due to excess calories, I10 - Essential (primary) hypertension, K21.9 - Gastro- esophageal reflux disease without esophagitis, K76.0 - Fatty (change of) liver, not elsewhere classified C Reactive Protein Today E66.01 - Morbid (severe) obesity due to excess calories, I10 - Essential (primary) hypertension, K21.9 - Gastro-esophageal reflux disease without esophagitis, K76.0 - Fatty (change of) liver, not elsewhere classified Complete Blood Count Auto Diff Today E66.01 - Morbid (severe) obesity due to excess calories, I10 - Essential (primary) hypertension, K21.9 - Gastro- esophageal reflux disease without esophagitis, K76.0 - Fatty (change of) liver, not elsewhere classified Medications: New ondansetron Only use if you have nausea before or after your surgery 4 mg PO Q12H 20 tabs 0RF nausea and vomiting R11.0 - Nausea polyethylene glycol 3350 (Miralax) Please mix each packet with 8oz of water, Gatorade zero or crystal light and do 7 packets on 02/29/24 and another 7 packets on 03/01/24 17 grams PO DAILY 14 ea 0RF Z01.818 - Encounter for other preprocedural examination pantoprazole 40 mg PO DAILY 90 tabs 0RF K21.9 - Gastro-esophageal reflux disease without esophagitis sucralfate 10 mL PO BID 600 mL 2RF K21.9 - Gastro-esophageal reflux disease without esophagitis Telehealth Telehealth Location of provider rendering services: practice address Location of patient: address on file Patient Identification confirmed using: Name, : Yes Telehealth method: voice only Patient verbally consented to treatment: Yes Patient verbally consented to billing insurance company: Yes Patient informed of any privacy concerns related to visit: Yes Minutes spent on Phone/Video with Pt.: 30 Coding Level of Care Code Tele Est Pt Level 5 (00042) Diagnoses Morbid obesity E66.01 Time Spent (min) 30
== END 2024-02-25 15:56 | disposition home or self-care (01) ==
LOC: HO.HBS 11:04
PROVIDERS: Visit Provider Surgery
DX: E66.01 Morbid (severe) obesity due to excess calories (principal); Z68.43 Body mass index [BMI] 50.0-59.9, adult
CPT/HCPCS: 99499

== ENCOUNTER → 2024-02-25 11:04 | Outpatient (BNVA) | payer MEDICAID, SELFPAY | PROVIDERS: Visit Provider Surgery | DX: E66.01 Morbid (severe) obesity due to excess calories (principal); K21.9 Gastro-esophageal reflux disease without esophagitis; I10 Essential (primary) hypertension; K76.0 Fatty (change of) liver, not elsewhere classified; R11.0 Nausea; Z01.818 Encounter for other preprocedural examination ==

== ENCOUNTER 2024-02-27 08:41 | Outpatient (REF) | payer MEDICAID, SELFPAY ==
[2024-02-27 08:56] LABS: MANUAL DIFF FLAG NO
[2024-02-27 09:21] LABS: Basophils Percent Auto 0.4 % (0-2); Eosinophils Absolute Auto 0.3 X10*3/uL (0.0-0.4); Eosinophils Percent Auto 2.9 % (0-4); Hematocrit 41.3 % (37.0-47.0); Hemoglobin 13.4 g/dl (12.0-16.0); Imm Gran Abs Auto 0.06 X10*3/uL (0.00-0.03); Imm Gran Pct Auto 0.6 % (0.0-0.4); Lymphocytes Absolute Auto 3.2 X10*3/uL (1.2-4.9); Lymphocytes Percent Auto 34.6 % (20-40); Mean Corpuscular HGB Conc 32.4 g/dl (31.0-35.0); Mean Corpuscular Hemoglobin 27.2 pg (27.0-33.0); Mean Corpuscular Volume 83.9 fL (80.0-98.0); Mean Platelet Volume 11.3 fL (9.4-12.3); Monocytes Absolute Auto 0.7 X10*3/uL (0.1-1.2); Neutrophils Percent Auto 53.5 % (45-73); Platelet Count 286 X10*3/uL (160-400); Red Blood Count 4.92 X10*6/uL (4.20-5.50); Red Cell Distribution Width 13.7 % (11.0-16.0); White Blood Count 9.3 X10*3/uL (4.8-10.8)
[2024-02-27 09:25] LABS: Partial Thromboplastin Time 31.2 SEC (26.0-36.8)
[2024-02-27 09:32] LABS: Estimated Average Glucose 103 mg/dL; Hemoglobin A1c % 5.2 % (<6.0)
[2024-02-27 10:16] LABS: Alanine Aminotransferase 28 U/L (0-31); Albumin Level 4.1 g/dL (3.5-5.0); Alkaline Phosphatase 58 U/L (39-117); Anion Gap 11 (12-20); Aspartate Amino Transferase 25 U/L (5-31); Bilirubin Total 0.5 mg/dL (0.0-1.0); Blood Urea Nitrogen 16 mg/dL (9-16); C Reactive Protein 0.74 mg/dL (< or = 0.50); Carbon Dioxide 26 mmol/L (22-29); Chloride 107 mmol/L (96-108); Cholesterol 174 mg/dL (<200); Estimated Glomerular Filt Rate > 60; Glucose Random 91 mg/dL (60-115); HDL Cholesterol 46 mg/dL (>40); LDL Cholesterol Calculated 110 mg/dL (<100); Potassium 3.5 mmol/L (3.3-5.1); Sodium 140 mmol/L (135-145); Total Protein 7.8 g/dL (6.5-8.0); Triglycerides 91 mg/dL (<150)
[2024-02-27 10:33] LABS: Insulin 21 uU/mL (2-29); TSH reflex Free T4 1.93 uIU/mL (0.32-4.0)
== END 2024-02-27 08:42 | disposition home or self-care (01) ==
LOC: HO.LAB 08:41
PROVIDERS: Visit Provider Surgery
DX: E66.01 Morbid (severe) obesity due to excess calories (principal); K21.9 Gastro-esophageal reflux disease without esophagitis; I10 Essential (primary) hypertension; K76.0 Fatty (change of) liver, not elsewhere classified
CPT/HCPCS: 36415; 80053; 80061; 83036; 83525; 84443; 85025; 85730; 86140

== ENCOUNTER 2024-03-02 10:07 | Inpatient (IN) | payer MEDICAID, SELFPAY ==
[2024-02-25 11:08] VITALS: BMI 52.3
--- NOTE | 2024-03-01 10:08 | HO.ANESPROP2 ---
Documented by User: Leann Jesus NP 03/01/24 10:09 HPI - Anesthesia Eval Consult details Narrative: 38yo F for Gastrectomy Sleeve,EGD,possible diaphragmatic hernia,possible ventral hernia,possible open PMFSH Active Problems Active Problems: All Active Problems H. pylori infection (Acute) Fatty liver (Acute) HTN (hypertension), benign (Acute) GERD (gastroesophageal reflux disease) (Acute) History of bilateral tubal ligation (Acute) section wound complication (Acute) Pre-op evaluation (Acute) Morbid obesity (Acute) Hx of hand surgery (Acute) Hx of skin graft (Acute) Past Medical History Medical History GERD (gastroesophageal reflux disease) HTN (hypertension) Family History Family History Mother No problems noted. Father Hypertension Surgical History Surgical History Hx of tubal ligation History of appendectomy History of section Hx of skin graft Hx of hand surgery Social History Social History Are you a primary toddler caregiver to a significant other at home: No Do you presently have visiting nurse or other home services: No Alcohol intake: never Patient Tobacco Use Status: Never used Tobacco Use of substances other than those prescribed or required for medical reasons: No Have you been hit, kicked, punched, or otherwise hurt by someone within the past year? If so, by whom?: No Are you DNR?: No Advance Directives: No Advance Directives on File: No Recently lost weight without trying: No Eating poorly because of decreased appetite: No Nutrition Risks: No Nutritional Risk Patient : No : No Poor oral hygiene: Yes (implants X2 upper and lower) Meds Allergies Allergy/AdvReac Type Severity Reaction Status Date / Time No Known Allergies Allergy Verified 03/02/24 10:27 Home Medications ?Medication ?Instructions ?Recorded ?Confirmed ?Last Taken ?Type cholecalciferol (vitamin D3) 50 50 mcg PO DAILY 08/04/23 03/02/24 03/01/24 History mcg (2,000 unit) capsule cyanocobalamin (vitamin B-12) 1,000 mcg PO DAILY 09/09/23 03/02/24 03/01/24 History 1,000 mcg tablet losartan 50 mg tablet 50 mg PO DAILY 09/09/23 03/02/24 03/01/24 History Exam Height,Weight and Vital Signs: Height 5 ft 2 in Weight 129.727 kg Pertinent Lab Results Pertinent Lab Results: Laboratory Tests 02/27/24 02/27/24 08:47 08:47 Blood Type B Negative Antibody Screen POSITIVE Antibody Identification Anti-E Anti-M Crossmatch (AHG) See Detail Laboratory Tests 02/27/24 08:54 WBC 9.3 Hgb 13.4 Hct 41.3 Plt Count 286 Sodium 140 Potassium 3.5 Chloride 107 Carbon Dioxide 26 BUN 16 Creatinine 0.87 Narrative Narrative: EKG 09/2023 Vent. Rate : 079 BPM Atrial Rate : 079 BPM P-R Int : 138 ms QRS Dur : 078 ms QT Int : 378 ms P-R-T Axes : 014 005 038 degrees QTc Int : 433 ms Normal sinus rhythm Normal ECG No previous ECGs available Assessment and Plan Assessment Anesthesia Assessment: Chart Reviewed Documented by User: Mayra Peck MD 03/02/24 11:39 HPI - Anesthesia Eval Consult details Narrative: 38yo F for EGD, Laparoscopic Sleeve Gastrectomy,possible diaphragmatic hernia repair,possible ventral hernia repair, possible open PMFSH Active Problems Active Problems: All Active Problems H. pylori infection (Acute) Fatty liver (Acute) HTN (hypertension), benign (Acute) GERD (gastroesophageal reflux disease) (Acute) History of bilateral tubal ligation (Acute) section wound complication (Acute) Pre-op evaluation (Acute) Morbid obesity BMI 52.3 Hx of hand surgery (Acute) Hx of skin graft (Acute) Denies KAYCEE. Never tested but snores Past Medical History Medical History GERD (gastroesophageal reflux disease) HTN (hypertension) Family History Family History Mother No problems noted. Father Hypertension Family history of problems with anesthesia: No Surgical History Surgical History Hx of tubal ligation History of appendectomy History of section Hx of skin graft Hx of hand surgery History of Problems with Anesthesia: No Social History Social History Are you a primary toddler caregiver to a significant other at home: No Do you presently have visiting nurse or other home services: No Alcohol intake: never Patient Tobacco Use Status: Never used Tobacco Use of substances other than those prescribed or required for medical reasons: No Have you been hit, kicked, punched, or otherwise hurt by someone within the past year? If so, by whom?: No Are you DNR?: No Advance Directives: No Advance Directives on File: No Recently lost weight without trying: No Eating poorly because of decreased appetite: No Nutrition Risks: No Nutritional Risk Patient : No : No Poor oral hygiene: Yes (implants X2 upper and lower) Meds Allergies Allergy/AdvReac Type Severity Reaction Status Date / Time No Known Allergies Allergy Verified 03/02/24 10:27 Home Medications ?Medication ?Instructions ?Recorded ?Confirmed ?Last Taken ?Type cholecalciferol (vitamin D3) 50 50 mcg PO DAILY 08/04/23 03/02/24 03/01/24 History mcg (2,000 unit) capsule cyanocobalamin (vitamin B-12) 1,000 mcg PO DAILY 09/09/23 03/02/24 03/01/24 History 1,000 mcg tablet losartan 50 mg tablet 50 mg PO DAILY 09/09/23 03/02/24 03/01/24 History Exam Height,Weight and Vital Signs: Height 5 ft 2 in Weight 129.727 kg Vital Signs Temp Pulse Resp BP Pulse Ox O2 Del Method 03/02/24 11:38 96.7 F L 76 16 151/89 H 98 Room Air Airway Mallampati Class: III TM Dist: >3cm Neck ROM: Full (Short neck) Partial: Upper Loose/Missing/Broken Teeth: Yes (Partial top. Denies broken or loose teeth) Heart: RRR Lungs: CTAB Assessment and Plan Assessment Anesthesia Assessment: Anesthesia Plan Discussed and Chart Reviewed Final Anesthetic Review Family History of Problems with Anesthesia: No History of Problems with Anesthesia: No NPO: Yes ASA Class: III Final Preanesthetic Review: No Changes in Pt Med Stat, Meds/Allgs Chart Reviewed, Consent Obtained/Reviewed and Anes Risks/Benef Reviewed Patient Risk: Intermediate Procedure Risk: Intermediate Assessment/Block/Sedation in SS: Assess/Block/Sedation-SS Anesthetic Plan Anesthetic Plan: GA Disposition: Standard PACU and Inp. Admit - Standard Bed
[2024-03-02] VITALS (9 sets, daily range): BP systolic 105–151; BP diastolic 53–89; PULSE 67–87; RESP 16–21; TEMP 35.9–37.7; O2SAT 95–99; BMI 53.0
[2024-03-02] MEDS: Aprepitant 32 MG/4.4 ML VIAL IVPUSH (10:53)
[2024-03-02] MEDS: Lactated Ringers 1,000 ML 100 ML IVCONT (10:54)
[2024-03-02] MEDS: Lactated Ringers 1,000 ML 999 ML IV (10:54)
--- NOTE | 2024-03-02 10:54 | PHA.MEDREC ---
Pharmacy Consult ? Medication Reconciliation Pharmacy has completed the medication reconciliation.PHARMACY HAS REVIEWED THE MED REC DONE BY NURSING
--- NOTE | 2024-03-02 13:46 | MHC.SHP ---
Pre-Procedural Eval Section A - 24 Hr Update-Section A only Date of Service: 03/02/24 The patient is an INPATIENT: Yes The patient has been examined within 24 hours of the surgical procedure. The History & Physical has been completed within 30 days and I have reviewed it.: Yes Section B - Complete if H&P > 30 days Chief Complaint: Morbid obesity Relevant Family History (Specify if Yes): No Relevant Social History: None Present Medications: None Medical History: No relevant PMH History of Previous Operations: No relevant previous surgery Allergies: Allergies Allergy/AdvReac Type Severity Reaction Status Date / Time No Known Allergies Allergy Verified 03/02/24 10:27 Review of Systems Sugical H&P ROS: Negative: Constitution, Cardiovascular, Respiratory, Neurological, Psychiatric, Hem-Onc, Allergic/Immunologic, Gastrointestinal, Genitourinary, Musculoskeletal, Integumentary, Endocrine and Eyes/Ears/Nose/Throat Exam Surgical H&P Exam: Normal: HEENT, Normal: Heart, Normal: Lungs, Normal: Extremities, Normal: Abdomen, Normal: Skin and Normal: Neurological Plan Diagnosis/Plan: Unchanged I have reviewed the history and physical and performed a pertinent physical examination on my patient. No changes have occurred unless specified. Time Spent With Patient Time: Total time managing care of this patient today ____ minutes.
--- NOTE | 2024-03-02 13:46 | PM.OP ---
Brief Operative Note Date of Service: 03/02/24 Pre-op diagnosis: Morbid obesity with comorbidities (see below) Post-op diagnosis: same (& diaphragmatic hernia) Procedure: INITIAL PATIENT BMI ON PRESENTATION AT OUR OFFICE: 59.1 kg/m2 LAST BMI BEFORE SURGERY: 53 kg/m2 COMORBIDITIES: hypertension, GERD ?The patient presented to the Weight Management Program with significant obesity that was negatively impacting the patient's comorbidities as listed above.? The program is a phased program with a special focus on preoperative medical weight management to promote substantial weight loss and prepare the patients for the second phase of the program: bariatric surgery. The patient participated in an intensive weekly lifestyle ?intervention and exercise program during which the patient ?has lost between the initial office visit and the last preoperative visit 34.9 lbs, or 10.8% of initial actual body weight. It was deemed appropriate for the patient to now have bariatric surgery. In light of the current Covid-19 pandemic and the well documented strong association of obesity and increased risk of worse outcomes if infected with Covid-19 (REFERENCES:https://pubmed.ncbi.nlm.nih.gov/56511169/,?https://pubmed.ncbi.nlm.nih.gov/21554207/), any delay in undergoing bariatric surgery may lead to the patient's worsening health condition and increased?risk of more severe Covid-19 disease if infected. In addition a recent?study from [facility] published in [employer] on 11/05/2021 ([email or web address]) found that, among patients with obesity, substantial weight loss achieved with surgery was associated with improved outcomes of COVID-19 infection. The findings suggest that obesity can be a modifiable risk factor for the severity of COVID-19 infection. In addition, the patient met the BMI-criteria for bariatric surgery based on the BMI on initial presentation. The patient should not be penalized for achieving such weight loss because ?it is not sustainable long-term without surgical intervention and it was achieved in preparation for bariatric surgery ?under my direction and based on my published research ([email or web address]).[email or web address] and?[email or web address].soard.org/article/[email or web address])23426-X/pdf) ?that a 10% preoperative weight loss improves long-term weight loss after surgery and reduces perioperative complications.? Insurance carriers such as [facility] have endorsed my recommendations ?and have included in their policies criteria to include a 10% preoperative weight loss requirement. PROCEDURE: Esophago-gastroscopy, laparoscopic repair of incarcerated diaphragmatic hernia, laparoscopic sleeve gastrectomy and laparoscopic gastropexy INDICATIONS: This is a 38 year-old female who was electively scheduled for laparoscopic, possibly open sleeve gastrectomy. The risks and complications of the procedure were discussed with the patient in advance, particularly the possibility of ; pulmonary embolism; staple line leak; bleeding; GERD; cardiac, pulmonary, or renal complications; as well as long-term problems such as insufficient weight loss, vitamin deficiency, strictures, or ulcers. The patient understood all the risks, and was in agreement to proceed with surgery. DESCRIPTION OF PROCEDURE: After informed consent was obtained from the patient, the patient was given preoperative antibiotics, and was transferred to the operating room. After successful induction of general anesthesia, pneumatic compression devices were placed on both lower extremities. An upper endoscopy was performed next. The oropharynx and esophagus appeared to be within normal limits. There was a diaphragmatic hernia present of moderate size consistent with the findings of the preoperative upper GI. The stomach was entered. Then after all fluid and air were suctioned and the stomach was fully decompressed, the scope was withdrawn and secured in the mid esophagus. The patient was then prepped and draped in the usual sterile manner, and abdominal access was established at the right upper quadrant with the Jose Angel technique. A 12 mm blunt port was inserted, and the abdomen was insufflated with CO2 to a pressure of 15 mmHg. Under direct visualization, additional ports were placed, specifically two 5 mm Versi-step ports to the left upper quadrant, and a 5 mm Versi-Step port to the right upper quadrant. 1% lidocaine plain was used to infiltrate all port sites as well as all fascia defects. Using the EndoClose suture passer device, I placed a #1 Polysorb tie across the falciform ligament in order to retract it up against the abdominal wall and prevent injury of the ligament with our instruments during the procedure. There were adhesions in the abdomen involving the omentum and the falcoform ligament. Those were lysed completely with the ultrasonic device. Following that, the patient was placed in a steep reverse Trendelenburg position. An additional 5 mm port was placed to the right flank for the Mediflex retractor that was used to retract the left lobe of the liver. The gastro-esophageal fat pad was opened with the ultrasonic device (Thunderbeat, Olympus) and the anterior esophagus and hiatus were exposed. The angle of His was opened with the ultrasonic device the fundus of the stomach from any diaphragmatic and splenic attachments. I then opened the gastrocolic ligament between the transverse colon and the greater curvature of the stomach with the ultrasonic device to enter the lesser sac and facilitate the ligation of the short gastric vessels. I started at a mid-point along the greater curvature and using the Thunderbeat, all short gastric vessels were divided all the way to the angle of His until the left david was completely dissected at its entirety. I then divided the gastro-colic ligament distally to a distance of about 3-4 cm proximal to the pylorus. There was an obvious significant-sized hiatal hernia. I continued dissecting along the hiatus toward the left david and the angle of His. I fully mobilized the fat pad that was incarcerated in the hernia. I then continued by dissecting even further into the posterior retro-esophageal space all the way to the angle of His. I continued to mobilize the esophagus into the mediastinum circumferentially. Both vagal nerves were seen and preserved. At that point, I was able to have at least 3 to 5 cm of esophagus into the abdomen.? After I completely mobilized the esophagus from both the left and right david and I had a good mobilization of the esophagus circumferentially, I closed the hernia defect with three interrupted #0 Surgidac sutures using the Endo Stitch device, two of which was placed posterior and one of which anterior to the esophagus. ? The stomach was then divided transversely with two Endo SHRUTHI-45 purple and four SHRUTHI-60 articulating purple loads using the Polleverywhere stapler and loads. Every effort was made that the gastric sleeve had a tubular shape and an even caliber throughout. Once the sleeve resection was completed, the staple line of the gastric sleeve was reinforced with Hemoclips. The resected stomach was retrieved without difficulty from the Jose Angel port. A gastropexy was then performed in order to prevent postoperative GERD and partial gastric volvulus. Several interrupted 2.0 Surgidac sutures were placed between the sleeve's staple line and the previously divided greater omentum and gastro-colic ligament using the Endo-Stitch device. ?An upper endoscopy was performed. There was no narrowing at the GE junction. The scope was easily advanced all the way to the pylorus which was clearly visualized. There was no narrowing anywhere and the sleeve's caliber was even throughout. The sleeve's staple line was inspected and there was no evidence of ischemia, bleeding or dehiscence. At that point the gastroscope was withdrawn from the patient?s mouth while we were decompressing the bowel and the stomach from any remaining air. I looked into the lesser sac to see how the sleeve was situating and it was situating well. There was no bleeding from the staple line, spleen, or short gastric vessels. The Mediflex retractor was removed, and the undersurface of the liver was inspected and there was no bleeding. The patient was placed in supine position. I closed the fascial defect of the 12 mm port site with a figure of eight #1 Polysorb suture. Then 30cc Ropivacaine plain with 10 mg of Dexamethasone were used to infiltrate the fascial closure as well as all skin incisions. A total of 5ml Zynrelef was applied in the Jose Angel wound. At this point, the abdomen was deflated, all ports were removed under direct vision, and no bleeding was noted from any of the port sites. The skin incisions were irrigated with saline and were closed with 4-0 absorbable monofilament sutures. Steri-Strips and OpSites were used to cover all incisions. The patient was extubated and was transferred in stable condition to the recovery room for further care. I was present and performed all adams parts of the procedure. Timothy Eckert was the assistant farm operations manager. There were no residents to assist with this case. Anton Martin MD, PhD, FACS Surgeon: Nhan Martin MD Anesthesia: GETA, local and other (TAP block and 5ml Zynrelef) Was an Improvement Director used for this Procedure?: No Improvement Director: Deena Eckert Estimated blood loss (mL): 10 IV fluids (mL): 2,000 Urine output (mL): 0 (No Encinas to record output) Pathology: other (Stomach) Condition: stable Disposition: PACU
--- NOTE | 2024-03-02 13:49 | P.DS_ITS ---
DS: Providers Provider Date of Service: 03/03/24 Date of admission: 03/02/24 10:07 Primary care physician: Unknown Physician DS: Summary Hospital Course Hospital Course: ADMITTING DIAGNOSIS: morbid obesity,?fatty liver, HTN, GERD ? DISCHARGE DIAGNOSIS: same, s/p laparoscopic sleeve gastrectomy with gastropexy and repair diaphragmatic hernia ? PAST SURGICAL HISTORY:?Caesarian section, hand surgery, skin graft, tubal ligation ? PROCEDURE: upper endoscopy, laparoscopic sleeve gastrectomy with gastropexy and repair of diaphragmatic hernia ? DISCHARGE SUMMARY: ? History of Present Illness: ? The patient is a? 38? year-old woman with a BMI of? 52.3? ? kg/m2 and associated co-morbidities as described above. The patient had extensive work-up, lost? ?37.2 ? lbs preoperatively and was electively scheduled for laparoscopic, possible open sleeve gastrectomy and gastropexy. Risks and complications of the surgery were discussed with the patient in advance, particularly the possibility of , pulmonary embolism, anastomotic leak, bleeding, bowel injury, GERD, cardiac, renal or pulmonary complications. The patient understood all the risks and was in agreement with the surgical plan. ? Hospital Course: ? The patient underwent an uneventful laparoscopic sleeve gastrectomy with gastropexy and repair of diaphragmatic hernia on the day of admission. Postoperatively, the patient was transferred to the surgical floor. The patient received IV Acetaminophen and IV dilaudid for pain control. Patient was started on bariatric phase 1 diet POD #0. On postoperative day one, the patient was feeling well without nausea, vomiting, fevers, or tachycardia. The patient had some mild incisional pain and the abdomen was soft.? ? On the morning of postoperative day one, the patient was continued on 1 ounce of water or ice every half hour. During the day, the patient did fairly well, having some incisional pain, but able to ambulate adequately and to tolerate liquids well. ? Since the patient is doing well, we decided that the patient was ready to be discharged. The patient was given instructions to follow-up with me next week and to call my office for any fever over 101, persistent abdominal pain, nausea, vomiting, GERD, symptoms of DVT such as calf tenderness, or leg swelling, or pulmonary embolism such as chest pain or shortness of breath.? The patient was also instructed to drink 40-60 ounces of liquids per day using the 1-ounce cups. The patient had been given prescriptions for Tylenol for pain, Zofran prn for nausea, and pantoprazole and carafate previously. The patient was encouraged to ambulate and use the incentive spirometer. The patient was allowed to shower, but no baths, and encouraged to stay active at home. All of these instructions were given to the patient personally. All questions were answered and the patient understood all instructions, the instructions were also given to the patient in print. Time Attestation Discharge Coordination Time (in mins): 30 Quality: Safe Use of Opioids Does Pt have an Active Cancer Diagnosis on the Problem List?: No Quality: Stroke Does the patient have a stroke diagnosis?: No Physical Exam Vital Signs: Vital Signs: Last Vital Signs Temp 96.7 F L 03/02/24 11:38 Pulse 76 03/02/24 11:38 Resp 16 03/02/24 11:38 BP 151/89 H 03/02/24 11:38 Pulse Ox 98 03/02/24 11:38 O2 Del Method Room Air 03/02/24 11:38 BMI result Body Mass Index 52.3 DS: Data Data Completed and Pending Labs on day of discharge: Laboratory Results - last 24 hr 02/27/24 08:47 Antibody Identification Anti-M Discharge Plan Discharge Anticipated Discharge Date/Time: 03/03/24 10:00 Patient Disposition: Home, Self-Care Discharge Diagnosis: s/p laparoscopic sleeve gastrectomy with gastropexy and hiatal hernia repair Referrals: Physician,Unknown J [Primary Care Provider] - 1 Week Discharge Medications: Continued pantoprazole 40 mg tablet,delayed release (DR/EC) 40 mg PO DAILY Qty: 90 0RF sucralfate 100 mg/mL suspension 10 ml PO BID Qty: 600 2RF ondansetron 4 mg tablet,disintegrating 4 mg PO Q12H Qty: 20 0RF Rx Instructions: Only use if you have nausea before or after your surgery Held losartan 50 mg tablet 50 mg PO DAILY Hold Instructions: Resume on 03/04/24. Check your blood pressure every morning as soon as you wake up and send it to Dr. Martin. Do no take the blood pressure medication if the blood pressure is below 120/70. Wait every day to hear back from Dr. Martin before you take the medication. Discontinued cholecalciferol (vitamin D3) 50 mcg (2,000 unit) capsule 50 mcg PO DAILY cyanocobalamin (vitamin B-12) 1,000 mcg tablet 1,000 mcg PO DAILY polyethylene glycol 3350 [Miralax] 17 gram powder in packet 17 g PO DAILY Qty: 14 0RF Rx Instructions: Please mix each packet with 8oz of water, Gatorade zero or crystal light and do 7 packets on 02/29/24 and another 7 packets on 03/01/24 Discharge Orders: Discharge Order (Routine); Ordered 03/03/24 Ordered By: Nhan Martin Activity on Discharge: No heavy lifting Stand Alone Forms: Patient Portal Discharge page Print Language: Irish Care Plan Goals: weight loss Health Concerns: morbid obesity Plan of Treatment: No tub baths, sex or returning to work until discussed at first post op appointment. No alcohol, tobacco or illegal drug use. Continue to use incentive spirometer hourly while awake. Walk in home for 5- 10 minutes every 2 hours during the first week. Wear abdominal binder with activity. Follow all meal plan instructions from your bariatric surgeon. Review bariatric handbook and call with any questions. Discharge Instructions 1. Please call your doctor or come back to the emergency room should any new symptoms arise. 2. Activity: abstain from alcohol,? limited stair climbing, no bending, no driving, no exercise, no illicit substances, no lifting, no sex, no tub bath, no work. 4. Diet: follow your bariatric surgeons recommendations for advancing diet. 5. Dressing Change/Wound Care: Your incisions are covered with waterproof dressings. You can shower with these and pat dry. Do not rub over dressings or incisions. If the area is tender, you may apply an ice pack for short intervals (no more than 20 minutes on, followed by at least 20 minutes off). Do not apply heat. Do not use creams, lotions, or topical antibiotics unless instructed to do so by your surgeon. 6. Call your doctor if: - Your temperature exceeds 101.5 F - You experience excessive pain or swelling - You have an unexpected reaction to medication - You have excessive bleeding - You experience continued vomiting/nausea - Your incision begins to separate - Your incision shows signs of infection such as increased redness, swelling, excessive pain, heat, or drainage (light blood or clear fluid is normal) General instructions: No lifting greater than 10 lbs for the next 6 weeks. No driving within 24 hours of taking narcotic pain medications. If you do not move your bowels in the next 2 days, please take milk of magnesia over the counter. Please follow the post op diet and do not advance your diet until you are seen in the office in about 2 weeks. Please walk around your home every hour or two to prevent blood clots from forming in your legs. You do not need to wake from sleeping to walk. Please sleep in a bed or couch to prevent kinking at the hips and knees. Please take your incentive spirometer (your lung creping machine operator helper) home with you and use it for the next few days to prevent pneumonias. You may shower, no hot tubs, baths or swimming pools. Please call the office with any questions or concerns such as increasing abdominal pain, fever, chills, shortness of breath, chest pain, leg pain or swelling, or redness or drainage from your incisions. Please make sure you are consuming 40-60 ounces of total fluids per day. Avoid all carbonation. Do not hesitate to contact the office with any questions at . The patient's medical history has been reviewed and they are considered low risk for post op DVT and therefore DVT prophylaxis is not considered necessary. Travel after surgery was reviewed. The patient has not disclosed any travel plans during the first 30 days after surgery and they have been advised that within the first 30 days after surgery any bus, plane, train or car travel over 2 hours in duration is contraindicated due to the possibility of developing blood clots from immobility. Any travel, needs to include periods of ambulation of 10 minutes in duration every 2 hours.? The patient was instructed to discuss any plans for travel during this period with their bariatric surgeon. Assessment: s/p laparoscopic sleeve gastrectomy with gastropexy and hiatal hernia repair Discharge Date/Time: 03/03/24 09:32
--- NOTE | 2024-03-02 13:49 | P.PNGS_ITS ---
Subjective Subjective Date of Service: 03/03/24 Interval history: Feels well. Mild incisional pain. She is tolerating phase 1 bariatric diet Physical Exam 2 Vital Signs: Vital Signs: Last Vital Signs Temp 96.7 F L 03/02/24 11:38 Pulse 76 03/02/24 11:38 Resp 16 03/02/24 11:38 BP 151/89 H 03/02/24 11:38 Pulse Ox 98 03/02/24 11:38 O2 Del Method Room Air 03/02/24 11:38 BMI result Body Mass Index 52.3 GI: Inspection: Yes normal to inspection, Yes incision (clean, dry and intact) and Yes obesity Palpation (GI): Soft to palpation Extrem: Right lower extremity: normal to inspection (no calf tenderness) L eft lower extremity: normal to inspection (no calf tenderness) Objective Data Active Medications Fentanyl (Fentanyl Citrate/Pf 100 Mcg/2 Ml Vial) 25 mcg IVPUSH Q5M PRN; Protocol PRN Reason: Pain, Moderate(Pain Scale 4-6) Stop: 03/02/24 17:42 Hydromorphone HCl (Hydromorphone Hcl 0.5 Mg/0.5 Ml Syringe) 0.25 mg IVPUSH Q5M PRN; Protocol PRN Reason: Pain, Severe (Pain Scale 7-10) Stop: 03/02/24 17:42 Lactated Ringer's (Lr) 1,000 mls @ 100 mls/hr IVCONT .Q10H NENA Last Admin: 03/02/24 10:54 Dose: 100 mls/hr Documented By: JOHN Labs 03/03/24 05:36 03/03/24 05:36 Labs: Laboratory Results - last 24 hr 02/27/24 08:47 Antibody Identification Anti-M Procedures Date of Service Date of Service: 03/03/24 Progress Note: A&P Assessment and plan (1) Morbid obesity: Status: Acute Assessment and Plan: s/p laparoscopic sleeve gastrectomy, lysis of adhesions, diaphragmatic hernia repair and gastropexy Doing well Will check am labs and if OK the patient will be discharged home (2) GERD (gastroesophageal reflux disease): Status: Acute (3) HTN (hypertension), benign: Status: Acute (4) Diaphragmatic hernia: Status: Acute (5) S/P laparoscopic sleeve gastrectomy: Status: Acute (6) Status post repair of paraesophageal diaphragmatic hernia: Status: Acute (7) Intra-abdominal adhesions: Status: Acute Time Spent With Patient Time: Total time managing care of this patient today ____ minutes. Quality Stroke Does the patient have a stroke diagnosis?: No VTE Prior VTE?: No VTE Risk Level:: Surgical - moderate VTE Device Contraindication: N/A - Device Ordered VTE Drug Contraindication: Treatment Not Indicated
[2024-03-02 17:56] LABS: Hemoglobin 12.4 g/dl (12.0-16.0)
[2024-03-02] MEDS: Lactated Ringers 1,000 ML 150 ML IVCONT (18:13)
[2024-03-02 18:19] LABS: Anion Gap 13 (12-20); Blood Urea Nitrogen 16 mg/dL (9-16); Calcium 9.1 mg/dL (8.4-10.2); Carbon Dioxide 20 mmol/L (22-29); Chloride 109 mmol/L (96-108); Creatinine Clr Calc Pharmacy 91.2; Estimated Glomerular Filt Rate 56; Glucose Random 110 mg/dL (60-115); Potassium 3.7 mmol/L (3.3-5.1); Sodium 138 mmol/L (135-145)
[2024-03-02] MEDS: ceFAZolin Sodium/Dextrose,Iso 2 GM/50 ML PIGGYBACK IV (19:13)
[2024-03-02] MEDS: Famotidine/PF 20 MG/2 ML VIAL IVPUSH (21:14)
[2024-03-02] MEDS: Acetaminophen 1,000 MG/100 ML PIGGYBACK 16.7 MG IV (21:16)
[2024-03-02] MEDS: ondansetron HCL 4 MG/2 ML VIAL IVPUSH (21:17)
[2024-03-03] MEDS: Lactated Ringers 1,000 ML 150 ML IVCONT (01:10)
[2024-03-03] MEDS: Acetaminophen 1,000 MG/100 ML PIGGYBACK 16.7 MG IV (02:45)
[2024-03-03 03:00] VITALS: BP 122/72; PULSE 72; RESP 20; TEMP 36.6; O2SAT 96
[2024-03-03] MEDS: ondansetron HCL 4 MG/2 ML VIAL IVPUSH (05:44)
[2024-03-03 06:54] LABS: Anion Gap 16 (12-20); Blood Urea Nitrogen 14 mg/dL (9-16); Calcium 8.9 mg/dL (8.4-10.2); Carbon Dioxide 15 mmol/L (22-29); Chloride 109 mmol/L (96-108); Creatinine Clr Calc Pharmacy 120.2; Estimated Glomerular Filt Rate > 60; Glucose Random 109 mg/dL (60-115); Potassium 3.7 mmol/L (3.3-5.1); Sodium 136 mmol/L (135-145)
[2024-03-03 07:00] VITALS: BP 148/81; PULSE 80; RESP 16; TEMP 36.7; O2SAT 92
[2024-03-03 08:13] LABS: Basophils Percent Auto 0.1 % (0-2); Eosinophils Percent Auto 0.1 % (0-4); Hematocrit 36.4 % (37.0-47.0); Hemoglobin 12.1 g/dl (12.0-16.0); Imm Gran Abs Auto 0.05 X10*3/uL (0.00-0.03); Imm Gran Pct Auto 0.5 % (0.0-0.4); Lymphocytes Absolute Auto 1.4 X10*3/uL (1.2-4.9); Lymphocytes Percent Auto 12.7 % (20-40); Mean Corpuscular HGB Conc 33.2 g/dl (31.0-35.0); Mean Corpuscular Hemoglobin 27.1 pg (27.0-33.0); Mean Corpuscular Volume 81.4 fL (80.0-98.0); Mean Platelet Volume 11.1 fL (9.4-12.3); Monocytes Absolute Auto 0.5 X10*3/uL (0.1-1.2); Monocytes Percent Auto 4.6 % (2-11); Neutrophils Absolute Auto 8.9 x10*3/uL (2.0-8.3); Platelet Count 246 X10*3/uL (160-400); Red Blood Count 4.47 X10*6/uL (4.20-5.50); Red Cell Distribution Width 13.6 % (11.0-16.0); White Blood Count 10.8 X10*3/uL (4.8-10.8)
[2024-03-03] MEDS: Famotidine/PF 20 MG/2 ML VIAL IVPUSH (08:31)
--- NOTE | 2024-03-03 09:04 | MHC.CM.PN ---
pt dcd home self care
--- NOTE | 2024-03-03 12:16 | HO.POSTANES ---
Post Anesthesia Evaluation Post Anesthesia Evaluation Date of Service: 03/02/24 Vital Signs: Vital Signs Temp Pulse Resp BP Pulse Ox O2 Del Method O2 Flow Rate 03/03/24 07:00 98.1 F 80 16 148/81 H 92 Room Air 03/03/24 03:00 97.9 F 72 20 122/72 96 Nasal Cannula 2 Anesthesia: General Endotracheal-GETA Mental Status: Awake Pain Control: Satisfactory Nausea/Vomiting: None Hydration: Adequate Anesthesia-Related Issues: No Anes. Related Issues
== END 2024-03-03 09:32 | disposition home or self-care (01) | DRG 403 ==
LOC: HO.SSSA 13:56 → HO.S3 16:59
PROVIDERS: Physician Assistant Surgical; Admitting Provider Surgery; Visit Provider Surgery
PROC: 0DB64Z3 Excision of Stomach, Percutaneous Endoscopic Approach, Vertical (ICD-10-PCS; CPT 43845; principal; 2024-03-02 12:50)
DX: E66.01 Morbid (severe) obesity due to excess calories (principal); K44.0 Diaphragmatic hernia with obstruction, without gangrene; K76.0 Fatty (change of) liver, not elsewhere classified; I10 Essential (primary) hypertension; K21.9 Gastro-esophageal reflux disease without esophagitis; Z68.43 Body mass index [BMI] 50.0-59.9, adult; Z79.899 Other long term (current) drug therapy
CPT/HCPCS: 36415; 80048; 85014; 85018; 85025; 86850; 86870; 86885; 86900; 86901; 86920; 86922; 88307; 88342; A4649; C9088; C9145; J0131; J0690; J1100; J1170; J2250; J2371; J2405; J2704; J2795; J3010; J7120

== ENCOUNTER → 2024-03-02 10:07 | Outpatient (BNV) | payer MEDICAID, SELFPAY | PROVIDERS: Admitting Provider Surgery; Visit Provider Surgery | DX: E66.01 Morbid (severe) obesity due to excess calories (principal); Z68.43 Body mass index [BMI] 50.0-59.9, adult; K44.0 Diaphragmatic hernia with obstruction, without gangrene | CPT/HCPCS: 43281; 43659; 43775; 99024 ==

== ENCOUNTER 2024-03-09 09:56 | Outpatient (AMB) | payer MEDICAID, SELFPAY ==
--- NOTE | 2024-03-09 09:59 | MHC.OFFVISWM ---
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 She is 7 days status post sleeve gastrectomy with hiatal hernia repair on 03/02/2024. She is tolerating 3 celebrate 4 in 1 shakes with 1 scoop each and an additional 20 oz of water or Gatorade. She has moved her bowels and offers no complaints of pain. Regarding her hypertension, she has been checking her blood pressure and taking 1/2 tablet daily per recommendations by Dr. Martin based on her blood pressure readings [facility] Medical History (Updated 03/06/24 @ 00:02 by Patsy Guzman) Diaphragmatic hernia section wound complication Pre-op evaluation GERD (gastroesophageal reflux disease) HTN (hypertension) Surgical History (Updated 03/09/24 @ 10:12 by Lana Mondragon CMA) Hx of laparoscopic partial gastrectomy Hx of tubal ligation History of appendectomy History of section Hx of skin graft Hx of hand surgery Family History Mother No problems noted. Father Hypertension Social History Household Members: Spouse Housing: House Are you a primary personal care service provider to a significant other at home: No Do you presently have visiting nurse or other home services: No Alcohol intake: never Patient Tobacco Use Status: Never used Tobacco Physical Exam GI Inspection: Yes incision (Clean, dry, intact. Mild bruising) Assessment & Plan Assessment & Plan (1) S/P laparoscopic sleeve gastrectomy: Code(s): Z98.84 - Bariatric surgery status Category: Surgical Plan: POD 7 s/p LSG with hiatal hernia repair on 03/02/[address] Martin Weight loss prior to surgery was 37.9 pounds or 11.7 % TBWL. Original weight on 09/08/2023 was 323.2 pounds and op weight was 285.3 pounds. Be sure to text Dr Martin exactly 1 week after surgery your weight from your home scale so he can adjust your meal plan. Continue meal plan until f/u w Deena in 2 weeks May shower, no submersion in bath for another week Continue abdominal binder with activity and exercise for the next 2 weeks. Exercise prior to surgery was treadmill, may resume No abdominal exercises for 6 weeks post operatively Will be emailed link to post op video for review Reminded of the pace of drinking, 2 mL per minute, 1 oz/15 min.
[2024-03-09 10:08] VITALS: BP 144/96; PULSE 101; TEMP 36.2; O2SAT 93; BMI 49.9
== END 2024-03-09 10:16 | disposition home or self-care (01) ==
PROVIDERS: Visit Provider Physician Assistant Surgical
DX: Z98.84 Bariatric surgery status (principal)
CPT/HCPCS: 99024

== ENCOUNTER → 2024-03-09 09:56 | Outpatient (BNVA) | payer MEDICAID, SELFPAY | PROVIDERS: Visit Provider Physician Assistant Surgical | DX: Z48.815 Encounter for surgical aftercare following surgery on the digestive system (principal); Z98.890 Other specified postprocedural states | CPT/HCPCS: 99212 ==

== ENCOUNTER 2024-03-25 10:34 | Outpatient (AMB) | payer MEDICAID, SELFPAY ==
--- NOTE | 2024-03-25 10:36 | A.OFFVIS_ITS ---
VS Expanded 03/25/24 10:46 BP 100/59 L Blood Pressure Location Rt brachial Blood Pressure Position Sitting Pulse 75 Pulse Source Pulse Oximeter Temp 96.3 F L Temperature Source Tympanic Pulse Oximetry 99 Oxygen Delivery Method Room Air Height 5 ft 2 in Weight 259 lb 6.4 oz BMI 47.4 Body Fat % 46.8 Body Fat Mass 121.0 Fat Free Mass 138.0 Visceral Fat Rating 15.0 Body Water % 38.1 Body Water Mass 98.8 Muscle Mass/Score 131.0 Basal Metabolic Rate/Score 1,965 Intake Visit Reasons: (OV) PO LSG 03/02/24 Self Propelled Hot Mix Roller Operator Required: Yes Allergies No Known Allergies Allergy (Verified 03/25/24 10:49) Medication List - Last Reconciled 03/25/24 by ANA LILIA Ellison losartan 50 mg PO DAILY ondansetron 4 mg PO Q12H pantoprazole 40 mg PO DAILY sucralfate 10 mL PO BID HPI Comments Details: This?is a?38?yo female who is s/p LSG 03/02/2024. Presents for 3 week post op visit. Weight at last visit on 03/09/2024 was 272.8 pounds with a BMI of 49.9, weight today is 259.4 pounds, representing a 13.4 pound weight loss with a BMI today of 47.5.? No complaints of nausea, emesis, abdominal pain or reflux, or constipation. Losartan remains on hold. Pt reports some low energy. No chest pain. Present meal plan includes: 10am-12pm Celebrate 2 scoops in 8oz UAM 2pm-4pm same shake 6-8pm Unjury shake with 1 scoop in 8oz unsweetened almond milk however pt states she had difficulty finishing all protein and has been doing Gatorade Zero instead of last shake Exercise routine includes: elliptical and treadmill 300 alena/day PFSH Medical History (Updated 03/06/24 @ 00:02 by Patsy Guzman) Diaphragmatic hernia section wound complication Pre-op evaluation GERD (gastroesophageal reflux disease) HTN (hypertension) Surgical History (Updated 03/09/24 @ 10:12 by Lana Mondragon CMA) Hx of laparoscopic partial gastrectomy Hx of tubal ligation History of appendectomy History of section Hx of skin graft Hx of hand surgery Family History Mother No problems noted. Father Hypertension Social History Household Members: Spouse Housing: House Are you a primary wild animal caretaker to a significant other at home: No Do you presently have visiting nurse or other home services: No Alcohol intake: never Patient Tobacco Use Status: Never used Tobacco Assessment & Plan Assessment & Plan (1) S/P laparoscopic sleeve gastrectomy: Code(s): Z98.84 - Bariatric surgery status Category: Surgical (2) Morbid obesity: Code(s): E66.01 - Morbid (severe) obesity due to excess calories Category: Medical (3) HTN (hypertension), benign: Code(s): I10 - Essential (primary) hypertension Category: Medical Plan Instructed pt to make sure she takes in last shake, to ensure she is getting adequate nutrition. Her fatigue and low energy may be related to not enough nutrition. Continue PPI, carafate. Will continue to text Dr. Salcedo weekly on Tuesdays with measurements. RTC 2 weeks. Patient is morbidly obese and is not considered stable at this time. I spent a total of 30 minutes reviewing/updating records, examining the patient and counseling the patient on weight management as detailed above.
[2024-03-25 10:46] VITALS: BP 100/59; PULSE 75; TEMP 35.7; O2SAT 99; BMI 47.4
== END 2024-03-25 11:01 | disposition home or self-care (01) ==
PROVIDERS: Visit Provider Physician Assistant Surgical
DX: E66.01 Morbid (severe) obesity due to excess calories (principal); Z68.42 Body mass index [BMI] 45.0-49.9, adult; Z98.84 Bariatric surgery status; I10 Essential (primary) hypertension
CPT/HCPCS: 99024

== ENCOUNTER → 2024-03-25 10:34 | Outpatient (BNVA) | payer MEDICAID, SELFPAY | PROVIDERS: Visit Provider Physician Assistant Surgical | DX: Z48.815 Encounter for surgical aftercare following surgery on the digestive system (principal); E66.01 Morbid (severe) obesity due to excess calories; I10 Essential (primary) hypertension; Z98.84 Bariatric surgery status; Z68.42 Body mass index [BMI] 45.0-49.9, adult | CPT/HCPCS: 99212 ==

== ENCOUNTER 2024-04-15 09:00 | Outpatient (AMB) | payer MEDICAID, SELFPAY ==
--- NOTE | 2024-04-15 09:06 | MHC.OFFVISWM ---
Intake Visit Reasons: (TV) PO LSG 03/02/24 Allergies No Known Allergies Allergy (Verified 03/25/24 10:49) Medication List - Last Reconciled 04/15/24 by ANA LILIA Ellison losartan 50 mg PO DAILY ondansetron 4 mg PO Q12H pantoprazole 40 mg PO DAILY sucralfate 10 mL PO BID HPI Comments Details: This?is a?38?yo female who is s/p LSG 03/02/2024. Presents for 6 week post op visit. Weight at last visit on 03/25/2024 was 259.4 pounds with a BMI of 47.4, weight today is [] pounds, representing a [] pound weight loss with a BMI today of [].? No complaints of nausea, emesis, abdominal pain or reflux, or constipation. Losartan remains on hold with good BP control. Present meal plan includes: All meals last 20 - 30 minutes and does not drink and eat at the same time. Exercise routine includes: [facility] Medical History (Updated 03/06/24 @ 00:02 by Patsy Guzman) Diaphragmatic hernia section wound complication Pre-op evaluation GERD (gastroesophageal reflux disease) HTN (hypertension) Surgical History (Updated 03/09/24 @ 10:12 by Lana Mondragon CMA) Hx of laparoscopic partial gastrectomy Hx of tubal ligation History of appendectomy History of section Hx of skin graft Hx of hand surgery Family History Mother No problems noted. Father Hypertension Social History Household Members: Spouse Housing: House Are you a primary healthcare financial analyst to a significant other at home: No Do you presently have visiting nurse or other home services: No Alcohol intake: never Patient Tobacco Use Status: Never used Tobacco Telehealth Telehealth Telehealth Platform: Telephone Location of provider rendering services: other Location of patient: address on file Patient Identification confirmed using: Name, : Yes Telehealth method: voice only Patient verbally consented to treatment: Yes Patient verbally consented to billing insurance company: Yes Patient informed of any privacy concerns related to visit: Yes Minutes spent on Phone/Video with Pt.: 15 Assessment & Plan Assessment & Plan (1) S/P laparoscopic sleeve gastrectomy: Code(s): Z98.84 - Bariatric surgery status Category: Surgical (2) Morbid obesity: Code(s): E66.01 - Morbid (severe) obesity due to excess calories Category: Medical
--- NOTE | 2024-04-15 11:15 | MHC.OFFVISWM ---
VS Expanded 04/15/24 11:25 Height 5 ft 2 in Weight 247 lb BMI 45.2 Intake Visit Reasons: (TV) PO LSG 03/02/24 Assembler Piano Required: Yes Allergies No Known Allergies Allergy (Verified 03/25/24 10:49) Medication List - Last Reconciled 04/15/24 by ANA LILIA Ellison losartan 50 mg PO DAILY ondansetron 4 mg PO Q12H pantoprazole 40 mg PO DAILY sucralfate 10 mL PO BID HPI Comments Details: This?is a?38?yo female who is s/p LSG 03/02/2024. Presents for 6 week post op visit. Weight at last visit on 03/25/2024 was 259.4 pounds with a BMI of 47.4, weight today is 247 pounds, representing a 12.4 pound weight loss with a BMI today of 45.2.? No complaints of nausea, emesis, abdominal pain or reflux, or constipation. Remains off losartan and BP well controlled. Present meal plan includes: 10am-12pm Celebrate 2 scoops in 8oz UAM 2-4pm Unjury 1 scoop in 8oz UAM 6-8pm another 1 scoop Unjury Exercise routine includes: elliptical and treadmill 300 alena/day PFSH Medical History (Updated 03/06/24 @ 00:02 by Patsy Guzman) Diaphragmatic hernia section wound complication Pre-op evaluation GERD (gastroesophageal reflux disease) HTN (hypertension) Surgical History (Updated 03/09/24 @ 10:12 by Lana Mondragon CMA) Hx of laparoscopic partial gastrectomy Hx of tubal ligation History of appendectomy History of section Hx of skin graft Hx of hand surgery Family History Mother No problems noted. Father Hypertension Social History Household Members: Spouse Housing: House Are you a primary healthcare facility administrator to a significant other at home: No Do you presently have visiting nurse or other home services: No Alcohol intake: never Patient Tobacco Use Status: Never used Tobacco Assessment & Plan Assessment & Plan (1) S/P laparoscopic sleeve gastrectomy: Code(s): Z98.84 - Bariatric surgery status Category: Surgical (2) Morbid obesity: Code(s): E66.01 - Morbid (severe) obesity due to excess calories Category: Medical Plan Pt to start bariatric MVI since she is not getting a full dose from Celebrate powder. No activity restrictions on lifting now that she is 6w postop. May start 2 forkfuls solid food (GY, CC, scrambled egg) at dinner time, take MVI at that time. Plan sent via text RTC 1 month. Patient is morbidly obese and is not considered stable at this time. I spent a total of 30 minutes reviewing/updating records, examining the patient and counseling the patient on weight management as detailed above.
[2024-04-15 11:25] VITALS: BMI 45.2
== END 2024-04-15 14:35 | disposition home or self-care (01) ==
LOC: HO.HBS 13:27
PROVIDERS: Visit Provider Physician Assistant Surgical
DX: E66.01 Morbid (severe) obesity due to excess calories (principal); Z68.42 Body mass index [BMI] 45.0-49.9, adult; Z90.3 Acquired absence of stomach [part of]; Z98.84 Bariatric surgery status
CPT/HCPCS: 99024

== ENCOUNTER → 2024-04-15 09:00 | Outpatient (BNVA) | payer MEDICAID, SELFPAY | PROVIDERS: Visit Provider Physician Assistant Surgical | DX: Z98.84 Bariatric surgery status (principal); E66.01 Morbid (severe) obesity due to excess calories; I10 Essential (primary) hypertension ==

== ENCOUNTER 2024-06-08 11:27 | Outpatient (AMB) | payer MEDICAID, SELFPAY ==
--- NOTE | 2024-06-08 11:30 | A.OFFVIS_ITS ---
VS Expanded 06/08/24 11:36 BP 134/92 H Blood Pressure Location Rt brachial Blood Pressure Position Sitting Pulse 67 Pulse Source Pulse Oximeter Temp 96.8 F Temperature Source Temporal Artery Scan Pulse Oximetry 100 Oxygen Delivery Method Room Air Height 5 ft 2 in Weight 227 lb BMI 41.5 Body Fat % 41.2 Body Fat Mass 93.4 Fat Free Mass 133.4 Visceral Fat Rating 11.0 Body Water % 42.1 Body Water Mass 95.4 Muscle Mass/Score 126.6 Basal Metabolic Rate/Score 1,858 Intake Visit Reasons: (OV) PO LSG 03/02/24 Allergies No Known Allergies Allergy (Verified 06/08/24 11:40) Medication List - Last Reconciled 06/08/24 by ANA LILIA Ellison No Known Home Meds HPI Comments Details: This?is a?38?yo female who is s/p LSG 03/02/2024. Presents for 3 month week post op visit. Weight at last visit on 04/15/2024 was 247 pounds with a BMI of 45.2, weight today is 227 pounds, representing a 20 pound weight loss with a BMI today of 41.5.? No complaints of nausea, emesis, abdominal pain or reflux, or constipation. Remains off losartan and BP well controlled. Present meal plan includes: Celebrate 2 scoops in 8oz UAM 2 shakes with Unjury 1 scoop in 8oz UAM 1 meal of 2-4 forks protein- has been doing eggs MVI Exercise routine includes: elliptical and treadmill tries to hit 500 alena/day PFSH Medical History (Updated 03/06/24 @ 00:02 by Patsy Guzman) Diaphragmatic hernia section wound complication Pre-op evaluation GERD (gastroesophageal reflux disease) HTN (hypertension) Surgical History (Updated 03/09/24 @ 10:12 by Lana Mondragon CMA) Hx of laparoscopic partial gastrectomy Hx of tubal ligation History of appendectomy History of section Hx of skin graft Hx of hand surgery Family History Mother No problems noted. Father Hypertension Social History Household Members: Spouse Housing: House Are you a primary healthcare administration intern to a significant other at home: No Do you presently have visiting nurse or other home services: No Alcohol intake: never Patient Tobacco Use Status: Never used Tobacco Assessment & Plan Assessment & Plan (1) S/P laparoscopic sleeve gastrectomy: Code(s): Z98.84 - Bariatric surgery status Category: Medical (2) Morbid obesity: Code(s): E66.01 - Morbid (severe) obesity due to excess calories Category: Medical Plan Pt would like to change out one of her shakes. Willing to do a bar instead- 1 Celebrate shake with 2 scoops 4:1 1 Unjury shake with 1 scoop 1 bar 1 meal of 2-4 forks protein, can try soft meats; can also try veg, 2-4 forks Continue exercise regimen. RTC 6 weeks. I spent a total of 30 minutes reviewing/updating records, examining the patient and counseling the patient on weight management as detailed above.
[2024-06-08 11:36] VITALS: BP 134/92; PULSE 67; TEMP 36; O2SAT 100; BMI 41.5
== END 2024-06-08 12:00 | disposition home or self-care (01) ==
PROVIDERS: Visit Provider Physician Assistant Surgical
DX: E66.01 Morbid (severe) obesity due to excess calories (principal); Z68.41 Body mass index [BMI] 40.0-44.9, adult; Z90.3 Acquired absence of stomach [part of]; Z98.84 Bariatric surgery status
CPT/HCPCS: 99214; G2211

== ENCOUNTER → 2024-06-08 11:27 | Outpatient (BNVA) | payer MEDICAID, SELFPAY | PROVIDERS: Visit Provider Physician Assistant Surgical | DX: E66.01 Morbid (severe) obesity due to excess calories (principal); Z71.3 Dietary counseling and surveillance; Z98.84 Bariatric surgery status; Z68.41 Body mass index [BMI] 40.0-44.9, adult | CPT/HCPCS: 99212 ==

== ENCOUNTER 2024-07-19 11:02 | Outpatient (AMB) | payer MEDICAID, SELFPAY ==
--- NOTE | 2024-07-19 11:07 | MHC.OFFVISWM ---
VS Expanded 07/19/24 11:20 BP 143/93 H Blood Pressure Location Rt brachial Blood Pressure Position Sitting Pulse 78 Pulse Source Pulse Oximeter Temp 97.1 F Temperature Source Temporal Artery Scan Pulse Oximetry 99 Oxygen Delivery Method Room Air Height 5 ft 2 in Weight 217 lb 12.8 oz BMI 39.8 Body Fat % 36.6 Body Fat Mass 79.6 Fat Free Mass 138.0 Visceral Fat Rating 9.0 Body Water % 45.4 Body Water Mass 98.8 Muscle Mass/Score 131.0 Basal Metabolic Rate/Score 1,894 Intake Visit Reasons: (OV) PO LSG 03/02/24 Allergies No Known Allergies Allergy (Verified 07/19/24 11:26) Medication List - Last Reconciled 07/19/24 by ANA LILIA Ellison [id number] K 45 mg iron- 800 mcg-120 mcg (Bariatric Multivitamins) caps PO HPI Comments Details: This?is a?38?yo female who is s/p LSG 03/02/2024. Presents for 4.5 month post op visit. Weight at last visit on 06/08/2024 was 227 pounds with a BMI of 41.5, weight today is 217.8 pounds, representing a 9.2 pound weight loss with a BMI today of 39.8.? No complaints of nausea, emesis, abdominal pain or reflux, or constipation. Present meal plan includes: 1 Celebrate shake with 2 scoops 4:1 1 Unjury shake with 1 scoop 1 bar 1 meal of 2-4 forks protein, can try soft meats; can also have veg, 2-4 forks MVI Exercise routine includes: elliptical 500 alena, 250 alena on treadmill- 6 days/week [facility] Medical History (Updated 07/19/24 @ 12:27 by ANA LILIA Ellison) Diaphragmatic hernia section wound complication Pre-op evaluation GERD (gastroesophageal reflux disease) HTN (hypertension) Surgical History (Updated 03/09/24 @ 10:12 by Lana Mondragon CMA) Hx of laparoscopic partial gastrectomy Hx of tubal ligation History of appendectomy History of section Hx of skin graft Hx of hand surgery Family History Mother No problems noted. Father Hypertension Social History Household Members: Spouse Housing: House Are you a primary manager progressive care to a significant other at home: No Do you presently have visiting nurse or other home services: No Alcohol intake: never Patient Tobacco Use Status: Never used Tobacco Physical Exam Vital Signs: Last Vital Signs Temp 97.1 F 07/19/24 11:20 Pulse 78 07/19/24 11:20 BP 143/93 H 07/19/24 11:20 Pulse Ox 99 07/19/24 11:20 Oxygen Delivery Method Room Air 07/19/24 11:20 BMI result Body Mass Index 39.8 Assessment & Plan Assessment & Plan (1) S/P laparoscopic sleeve gastrectomy: Code(s): Z98.84 - Bariatric surgery status Category: Surgical (2) Obesity: Code(s): E66.9 - Obesity, unspecified Category: Medical Plan Reviewed Tanita measurements, pt has gained muscle mass in addition to fat loss. No changes made today to meal plan. Getting adequate exercise. Can take biotin if she wants. RTC end of August for 6 month visit. I spent a total of 30 minutes reviewing/updating records, examining the patient and counseling the patient on weight management as detailed above.
[2024-07-19 11:20] VITALS: BP 143/93; PULSE 78; TEMP 36.2; O2SAT 99; BMI 39.8
== END 2024-07-19 12:30 | disposition home or self-care (01) ==
PROVIDERS: Visit Provider Physician Assistant Surgical
DX: E66.9 Obesity, unspecified (principal); Z68.39 Body mass index [BMI] 39.0-39.9, adult; Z90.3 Acquired absence of stomach [part of]; Z98.84 Bariatric surgery status
CPT/HCPCS: 99214

== ENCOUNTER → 2024-07-19 11:02 | Outpatient (BNVA) | payer MEDICAID, SELFPAY | PROVIDERS: Visit Provider Physician Assistant Surgical | DX: E66.9 Obesity, unspecified (principal); Z98.84 Bariatric surgery status; Z68.39 Body mass index [BMI] 39.0-39.9, adult | CPT/HCPCS: 99212 ==

== ENCOUNTER 2024-09-20 12:07 | Outpatient (REF) | payer MEDICAID, SELFPAY ==
[2024-09-20 13:14] LABS: MANUAL DIFF FLAG NO
[2024-09-20 13:38] LABS: Basophils Percent Auto 0.5 % (0-2); Eosinophils Absolute Auto 0.1 X10*3/uL (0.0-0.4); Hematocrit 35.3 % (37.0-47.0); Hemoglobin 11.7 g/dl (12.0-16.0); Imm Gran Abs Auto 0.02 X10*3/uL (0.00-0.03); Imm Gran Pct Auto 0.3 % (0.0-0.4); Lymphocytes Absolute Auto 1.9 X10*3/uL (1.2-4.9); Lymphocytes Percent Auto 30.2 % (20-40); Mean Corpuscular HGB Conc 33.1 g/dl (31.0-35.0); Mean Corpuscular Hemoglobin 28.1 pg (27.0-33.0); Mean Corpuscular Volume 84.7 fL (80.0-98.0); Mean Platelet Volume 10.7 fL (9.4-12.3); Monocytes Absolute Auto 0.6 X10*3/uL (0.1-1.2); Monocytes Percent Auto 9.1 % (2-11); Neutrophils Absolute Auto 3.7 x10*3/uL (2.0-8.3); Neutrophils Percent Auto 57.9 % (45-73); Platelet Count 188 X10*3/uL (160-400); Red Blood Count 4.17 X10*6/uL (4.20-5.50); Red Cell Distribution Width 13.3 % (11.0-16.0); White Blood Count 6.4 X10*3/uL (4.8-10.8)
[2024-09-20 13:52] LABS: Estimated Average Glucose 94 mg/dL; Hemoglobin A1C 93.8687 umol/L; Hemoglobin A1c % 4.9 % (<6.0); Total Hemoglobin (HGBA1C) 3110.0285 umol/L
[2024-09-20 14:16] LABS: Alanine Aminotransferase 25 U/L (0-31); Albumin Level 3.8 g/dL (3.5-5.0); Alkaline Phosphatase 56 U/L (39-117); Anion Gap 11 (12-20); Aspartate Amino Transferase 28 U/L (5-31); Bilirubin Total 0.8 mg/dL (0.0-1.0); Blood Urea Nitrogen 17 mg/dL (9-16); C Reactive Protein 0.26 mg/dL (< or = 0.50); Calcium 9.4 mg/dL (8.4-10.2); Carbon Dioxide 25 mmol/L (22-29); Chloride 106 mmol/L (96-108); Cholesterol 156 mg/dL (<200); Estimated Glomerular Filt Rate > 60; Glucose Random 82 mg/dL (60-115); HDL Cholesterol 54 mg/dL (>40); Iron 39 mcg/dL (30-160); LDL Cholesterol Calculated 87 mg/dL (<100); Percent Iron Saturation 10 % (15-50); Potassium 3.2 mmol/L (3.3-5.1); Sodium 139 mmol/L (135-145); Total Iron Binding Capacity 394 mcg/dL (228-428); Total Protein 7.4 g/dL (6.5-8.0); Triglycerides 77 mg/dL (<150); Unsaturated Iron Binding 355 ug/dL
[2024-09-20 14:33] LABS: Ferritin 8 ng/mL (10-250); Insulin 7 uU/mL (2-29); TSH reflex Free T4 1.39 uIU/mL (0.32-4.0); Vitamin D 25-OH Total 29.9 ng/mL (>30)
[2024-09-20 14:49] LABS: Folate 11.9 ng/mL (> or = 4.0); Vitamin B12 410 pg/mL (200-900)
[2024-09-22 18:13] LABS: Zinc 67 mcg/dL (60-130)
[2024-09-24 11:28] LABS: Vitamin A 26 mcg/dL (38-98)
[2024-09-24 16:43] LABS: Vitamin B1 11 nmol/L (8-30)
== END 2024-09-20 12:08 | disposition home or self-care (01) ==
LOC: HO.LAB 12:07
PROVIDERS: Visit Provider Physician Assistant Surgical
DX: E66.9 Obesity, unspecified (principal); Z98.84 Bariatric surgery status
CPT/HCPCS: 36415; 80053; 80061; 82306; 82607; 82728; 82746; 83036; 83525; 83540; 84425; 84443; 84590; 84630; 85025; 86140; 99212

== ENCOUNTER 2024-09-20 12:07 | Outpatient (AMB) | payer MEDICAID, SELFPAY ==
--- NOTE | 2024-09-20 12:08 | MHC.OFFVISWM ---
VS Expanded 09/20/24 12:15 BP 158/87 H Blood Pressure Location Rt brachial Blood Pressure Position Sitting Pulse 66 Pulse Source Pulse Oximeter Temp 96.7 F L Temperature Source Temporal Artery Scan Pulse Oximetry 98 Oxygen Delivery Method Room Air Height 5 ft 2 in Weight 213 lb 12.8 oz BMI 39.1 Body Fat % 36.6 Body Fat Mass 78.2 Fat Free Mass 135.4 Visceral Fat Rating 9.0 Body Water % 45.3 Body Water Mass 96.8 Muscle Mass/Score 128.6 Basal Metabolic Rate/Score 1,856 Intake Visit Reasons: (OV) PO LSG 03/02/24 Allergies No Known Allergies Allergy (Verified 09/20/24 12:11) Medication List - Last Reconciled 09/20/24 by ANA LILIA Ellison [id number] K 45 mg iron- 800 mcg-120 mcg (Bariatric Multivitamins) caps PO HPI Comments Details: This?is a 39?yo female who is s/p LSG 03/02/2024. Presents for 6.5 month post op visit. Weight at last visit on 07/19/2024 was 217.8 pounds, weight today is 213.8 pounds, representing a 4 pound weight loss with a BMI today of 39.1.? No complaints of nausea, emesis, abdominal pain or reflux, or constipation. Pt reports her MIL was staying with her for a period of time, made it hard to exercise. Taking biotin also. Present meal plan includes: 1 Celebrate shake with 2 scoops 4:1 1 Unjury shake with 1 scoop 1 bar 1 meal of 2-4 forks protein, can try soft meats; can also have veg, 2-4 forks MVI Exercise routine includes: elliptical 500 alena, 250 alena on treadmill- 6 days/week [facility] Medical History (Updated 07/19/24 @ 12:27 by ANA LILIA Ellison) Diaphragmatic hernia section wound complication Pre-op evaluation GERD (gastroesophageal reflux disease) HTN (hypertension) Surgical History Hx of laparoscopic partial gastrectomy Hx of tubal ligation History of appendectomy History of section Hx of skin graft Hx of hand surgery Family History Mother No problems noted. Father Hypertension Social History Household Members: Spouse Housing: House Are you a primary ocular care aide to a significant other at home: No Do you presently have visiting nurse or other home services: No Alcohol intake: never Patient Tobacco Use Status: Never used Tobacco Physical Exam Vital Signs: Last Vital Signs Temp 96.7 F L 09/20/24 12:15 Pulse 66 09/20/24 12:15 BP 158/87 H 09/20/24 12:15 Pulse Ox 98 09/20/24 12:15 Oxygen Delivery Method Room Air 09/20/24 12:15 BMI result Body Mass Index 39.1 Assessment & Plan Assessment & Plan (1) Obesity: Code(s): E66.9 - Obesity, unspecified Category: Medical (2) S/P laparoscopic sleeve gastrectomy: Code(s): Z98.84 - Bariatric surgery status Category: Surgical Plan Pt continues to follow meal plan per Dr. Salcedo. She plans to resume her exercise regimen. Labs ordered, pt will go today as she is fasting. I asked her if she often skips mealtimes/protein supplements as it is already 1pm and she has not eaten/drank anything yet. She reports she always gets all her protein in each day. RTC 2-3 months. I spent a total of 30 minutes reviewing/updating records, examining the patient and counseling the patient on weight management as detailed above. Orders: Orders Complete Blood Count Auto Diff Today Z98.84 - Bariatric surgery status IRON PROFILE Today Z98.84 - Bariatric surgery status Vitamin B12 and Folate Today Z98.84 - Bariatric surgery status C Reactive Protein Today Z98.84 - Bariatric surgery status Vitamin B1 Today Z98.84 - Bariatric surgery status Ferritin Today Z98.84 - Bariatric surgery status Insulin Today Z98.84 - Bariatric surgery status Hemoglobin A1c Today Z98.84 - Bariatric surgery status Lipid Panel Today Z98.84 - Bariatric surgery status Comprehensive Met. Panel Today Z98.84 - Bariatric surgery status Zinc Today Z98.84 - Bariatric surgery status Vitamin A Today Z98.84 - Bariatric surgery status TSH reflex Free T4 Today Z98.84 - Bariatric surgery status Vitamin D 25-OH Total Today Z98.84 - Bariatric surgery status
[2024-09-20 12:15] VITALS: BP 158/87; PULSE 66; TEMP 35.9; O2SAT 98; BMI 39.1
== END 2024-09-20 13:01 | disposition home or self-care (01) ==
PROVIDERS: PCP Nurse Practitioner Family; Visit Provider Physician Assistant Surgical
DX: E66.9 Obesity, unspecified (principal); Z98.84 Bariatric surgery status
CPT/HCPCS: 99214; G2211

== ENCOUNTER 2024-12-14 10:52 | Outpatient (AMB) | payer MEDICAID, SELFPAY ==
--- NOTE | 2024-12-14 10:55 | MHC.OFFVISWM ---
VS Expanded 12/14/24 11:04 BP 147/87 H Blood Pressure Location Rt brachial Blood Pressure Position Sitting Pulse 65 Pulse Source Pulse Oximeter Temp 98.1 F Temperature Source Temporal Artery Scan Pulse Oximetry 100 Oxygen Delivery Method Room Air Height 5 ft 2 in Weight 211 lb BMI 38.6 Body Fat % 35.0 Body Fat Mass 73.8 Fat Free Mass 137.2 Visceral Fat Rating 9.0 Body Water % 6.5 Body Water Mass 98.2 Muscle Mass/Score 130.2 Basal Metabolic Rate/Score 1,871 Intake Visit Reasons: (OV) PO LSG 03/02/24 Allergies No Known Allergies Allergy (Verified 12/14/24 11:02) Medication List - Last Reconciled 12/14/24 by ANA LILIA Ellison cholecalciferol (vitamin D3) 50 mcg PO DAILY [id number] K 45 mg iron- 800 mcg-120 mcg (Bariatric Multivitamins) caps PO HPI Comments Details: This?is a?39?yo female who is s/p LSG 03/02/2024. Presents for 10 month post op visit. Weight at last visit on 09/20/2024 was 213.8 pounds with a BMI of 39.1, weight today is 211 pounds, representing a 2.8 pound weight loss with a BMI today of 38.6.? No complaints of nausea, emesis, abdominal pain or reflux, or constipation. Was sick with COVID for 3 weeks, difficulty with exercise and meal plan during that time. Present meal plan includes: 1 Celebrate shake with 2 scoops 4:1 1 Unjury shake with 1 scoop 1 bar 1 meal of 2-4 forks protein, can try soft meats; can also have veg, 2-4 forks MVI Exercise routine includes: elliptical 500 alena, 250 alena on treadmill- 6 days/week Have you been diagnosed with reflux (GERD)? no Score 0-5: 0=no symptoms, 1=noticeable but not bothersome (slight or occasional), 2=noticeable, bothersome but not daily, 3=bothersome and daily, 4=affects daily activities, 5=incapacitating, unable to do daily activities How bad is the heartburn: 0 Heartburn when lying down: 0 Heartburn when standing up: 0 Heartburn after meals: 0 Does heartburn change your diet: 0 Does heartburn wake you up from sleep: 0 Do you have difficulty swallowin Do you have pain with swallowin If you take medication for reflux, does this affect your daily life: 0 Total score: 0 PFSH Medical History (Updated 07/19/24 @ 12:27 by ANA LILIA Ellison) Diaphragmatic hernia section wound complication Pre-op evaluation GERD (gastroesophageal reflux disease) HTN (hypertension) Surgical History Hx of laparoscopic partial gastrectomy Hx of tubal ligation History of appendectomy History of section Hx of skin graft Hx of hand surgery Family History Mother No problems noted. Father Hypertension Social History Household Members: Spouse Housing: House Are you a primary career development associate to a significant other at home: No Do you presently have visiting nurse or other home services: No Alcohol intake: never Patient Tobacco Use Status: Never used Tobacco Physical Exam Vital Signs: Last Vital Signs Temp 98.1 F 12/14/24 11:04 Pulse 65 12/14/24 11:04 BP 147/87 H 12/14/24 11:04 Pulse Ox 100 12/14/24 11:04 Oxygen Delivery Method Room Air 12/14/24 11:04 BMI result Body Mass Index 38.6 Assessment & Plan Assessment & Plan (1) Obesity: Code(s): E66.9 - Obesity, unspecified Category: Medical (2) S/P laparoscopic sleeve gastrectomy: Code(s): Z98.84 - Bariatric surgery status Category: Surgical Plan Reviewed body composition, muscle mass and body water up, fat mass down by 4.6 lbs. Pt back to her routine after illness. Will recheck labs after next visit. RTC 3 months for annual. I spent a total of 30 minutes reviewing/updating records, examining the patient and counseling the patient on weight management as detailed above.
[2024-12-14 11:04] VITALS: BP 147/87; PULSE 65; TEMP 36.7; O2SAT 100; BMI 38.6
== END 2024-12-14 11:33 | disposition home or self-care (01) ==
PROVIDERS: Visit Provider Physician Assistant Surgical
DX: E66.9 Obesity, unspecified (principal); Z98.84 Bariatric surgery status
CPT/HCPCS: 99214; G2211

== ENCOUNTER → 2024-12-14 10:52 | Outpatient (BNVA) | payer MEDICAID, SELFPAY | PROVIDERS: Visit Provider Physician Assistant Surgical | DX: E66.9 Obesity, unspecified (principal); Z71.3 Dietary counseling and surveillance; Z68.38 Body mass index [BMI] 38.0-38.9, adult; Z98.84 Bariatric surgery status | CPT/HCPCS: 99212 ==